=== PATIENT | male | born 1955 | race Caucasian/White ===

== ENCOUNTER 2021-03-19 09:50 | Inpatient (IN) | payer MEDICARE ==
[~2021-03-19] VITALS: Ht 177.8 cm; Wt 81.7 kg
[2021-03-19] MEDS ORDERED: DEXAMETHASONE SOD PHOS 20 MG/5 ML VIAL. IV ONE (10:30)
[2021-03-19] MEDS: NORMAL SALINE IV SCH ×9 (10:54→18:30)
[2021-03-19] MEDS ORDERED: DEXAMETHASONE SOD PHOS 4 MG/ML VIAL ONE (10:54)
[2021-03-19 11:06] LABS: BASO % 0 % (0-3); EOS % 0 % (0-3); HEMATOCRIT 43.8 % (39.0-53.0); HEMOGLOBIN 15.4 g/dL (13.0-17.5); LYMPH # 1.2 x10^3/uL (1.0-4.8); LYMPH % 28 % (24-48); MEAN CORPUSCULAR HEMOGLOBIN 32 pg (25-35); MEAN CORPUSCULAR HGB CONC 35 g/dL (31-37); MEAN CORPUSCULAR VOLUME 91 fL (79-100); MONO # 0.6 x10^3/uL (0.0-1.1); MONO % 14 % (0-9); NEUT # 2.5 x10^3/uL (1.8-7.7); NEUT % 58 % (31-73); PLATELET COUNT 187 x10^3/uL (140-400); RED BLOOD COUNT 4.82 x10^6/uL (4.30-5.70); RED CELL DISTRIBUTION WIDTH 13.5 % (11.5-14.5); WHITE BLOOD COUNT 4.4 x10^3/uL (4.0-11.0)
--- NOTE | 2021-03-19 11:07 | RAD ---
EXAM: Chest, single view. HISTORY: Fever. COMPARISON: None. FINDINGS: A frontal view of the chest obtained. There is left lower lobe atelectasis or interstitial infiltrate. No pleural effusion or pneumothorax is seen. The heart is normal in size. There are heale d rib fractures. There are surgical anchors within the right humeral head. IMPRESSION: Left lower lobe atelectasis or interstitial infiltrate. Electronically signed by: Effie Melendez MD (03/19/2021 11:05 AM) [id number]
[2021-03-19 11:15] LABS: CALCIUM 8.5 mg/dL (8.5-10.1); CREATININE 1.2 mg/dL (0.7-1.3); GFR 60.6
[2021-03-19 11:21] LABS: ALBUMIN/GLOBULIN RATIO 0.7 (1.0-1.7); TOTAL BILIRUBIN 0.8 mg/dL (0.2-1.0); TOTAL PROTEIN 7.1 g/dL (6.4-8.2)
[2021-03-19 11:44] LABS: INFLUENZA A PATIENT NEGATIVE (NEGATIVE); INFLUENZA B PATIENT NEGATIVE (NEGATIVE)
[2021-03-19 13:35] LABS: BILIRUBIN,URINE NEGATIVE (NEG); CLARITY,URINE CLEAR; COLOR,URINE YELLOW; NITRITE,URINE NEGATIVE (NEG); PROTEIN,URINE NEGATIVE (NEG-TRACE)
[2021-03-19 13:40] LABS: BACTERIA,URINE 0 /HPF (0-FEW); RBC,URINE 0 /HPF (0-2); WBC,URINE 0 /HPF (0-4)
[2021-03-19 13:42] LABS: BARBITURATES NEG (NEG); BENZODIAZEPINES NEG (NEG); CANNABINOIDS NEG (NEG); COCAINE NEG (NEG); METHADONE NEG (NEG); OPIATES POS (NEG); PHENCYCLIDINE NEG (NEG)
--- NOTE | 2021-03-19 13:42 | PDOC1 ---
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 Told EMS he has everything with myalgias, subjective fevers, cough, shortness of breath especially on exertion, chills, headache, loss of appetite, loss of taste, symptoms began 03/09/2021. Denies chest pain. Patient tells me he did not get the Covid vaccine and tells me he thinks that everyone who has had it has had their DNA altered. His cough is minimally productive but very annoying. Labs with rapid influenza and rapid COVID-19 antigen negative, WBC 12.4, Hb 15.4 platelets 187, NA 136, K4, BUN 12, CR 1.2, glucose 99, AST 58, ALT 5 alk phos 77, NT proBNP 146, albumin 3, troponin 0.053 lactate 1.7, urine drug screen positive for opiates, urinalysis bland otherwise. EKG sinus rhythm rate of 86 bpm normal axis and intervals QTc 439. Chest radiograph with left basilar infiltrate. Notably hypoxic 87% on room air improved with 2 L nasal cannula oxygen. Admitted for further care. Past Medical History Cardiovascular: CAD (2 RCA stent in 2013 - Dr. Nigel Jay), HTN, Hyperlipidemia Past Surgical History Past Surgical History: Hernia Repair (Bilateral inguinal and umbilical), Other (Right shoulder ORIF - 2012 in [place], [place]) Family History Family History: Coronary Artery Disease (Mother) Social History Smoke: Quit (1981) ALCOHOL: none Drugs: None Current Medications Current Medications Current Medications Sodium Chloride 2,190 ml @ 2,190 mls/hr Q1H IV Last administered on 03/19/21at 10:54; Start 03/19/21 at 10:30 Dexamethasone Sodium Phosphate (Decadron) 10 mg 1X ONCE IV Last administered on 03/19/21at 10:57; Start 03/19/21 at 10:30; Stop 03/19/21 at 12:08; Status DC Dexamethasone Sodium Phosphate (Decadron) 4 mg STK-MED ONCE .ROUTE ; Start 03/19/21 at 10:54; Stop 03/19/21 at 10:54; Status DC Piperacillin Sod/ Tazobactam Sod 3.375 gm/Sodium Chloride 50 ml @ 100 mls/hr 1X ONCE IV ; Start 03/19/21 at 14:00; Stop 03/19/21 at 14:29 Doxycycline Hyclate 100 mg/ Dextrose 100 ml @ 50 mls/hr 1X ONCE IV ; Start 03/19/21 at 13:45; Stop 03/19/21 at 15:44; Status UNV Ceftriaxone Sodium (Rocephin) 1 gm 1X ONCE IVP ; Start 03/19/21 at 13:45; Stop 03/19/21 at 13:46; Status UNV Doxycycline Hyclate 100 mg/ Dextrose 100 ml @ 50 mls/hr 1X ONCE IV ; Start 03/19/21 at 13:45; Stop 03/19/21 at 15:44; Status UNV Allergies Allergies: Coded Allergies: No Known Drug Allergies (Unverified , 03/19/21) ROS General: YES: Fatigue, Malaise; No: Chills, Night Sweats, Appetite, Other PSYCHOLOGICAL ROS: No: Anxiety, Behavioral Disorder, Concentration difficultie, Decreased libido, Depression, Disorientation, Hallucinations, Hostility, Irritablity, Memory difficulties, Mood Swings, Obsessive thoughts, Physical abuse, Sexual abuse, Sleep disturbances, Suicidal ideation, Other Eyes: No Blurry vision, No Decreased vision, No Double vision, No Dry eyes, No Excessive tearing, No Eye Pain, No Itchy Eyes, No Loss of vision, No Photophobia, No Scotomata, No Uses contacts, No Uses glasses, No Other HEENT: No: Heacaches, Visual Changes, Hearing change, Nasal congestion, Nasal discharge, Oral lesions, Sinus pain, Sore Throat, Epistaxis, Sneezing, Snoring, Tinnitus, Vertigo, Vocal changes, Other ALLERGY AND IMMUNOLOGY: No: Hives, Insect Bite Sensitivity, Itchy/Watery Eyes, Nasal Congestion, Post Nasal Drip, Seasonal Allergies, Other Hematological and Lymphatic: No: Bleeding Problems, Blood Clots, Blood Transfusions, Brusing, Night Sweats, Pallor, Swollen Lymph Nodes, Other ENDOCRINE: No: Breast Changes, Galactorrhea, Hair Pattern Changes, Hot Flashes, Malaise/lethargy, Mood Swings, Palpitations, Polydipsia/polyuria, Skin Changes, Temperature Intolerance, Unexpected Weight Changes, Other Breast: No New/Changing Breast Lumps, No Nipple changes, No Nipple discharge, N o Other Respiratory: YES: Cough, Shortness of breath, SOB with excertion; No: Hemoptysis, Orthopnea, Pleuritic Pain, Sputum Changes, Stridor, Tachypnea, Wheezing, Other Cardiovascular: No Chest Pain, No Palpitations, No Orthopnea, No Paroxysmal Noc. Dyspnea, No Edema, No Lt Headedness, No Other Gastrointestinal: No Nausea, No Vomiting, No Abdominal Pain, No Diarrhea, No Constipation, No Melena, No Hematochezia, No Other Genitourinary: No Dysuria, No Frequency, No Incontinence, No Hematuria, No Retention, No Discharge, No Urgency, No Pain, No Flank Pain, No Other, No , No , No , No , No , No , No Musculoskeletal: No Gait Disturbance, No Joint Pain, No Joint Stiffness, No Joint Swelling, No Muscle Pain, No Muscular Weakness, No Pain In:, No Swelling In:, No Other Neurological: No Behavorial Changes, No Bowel/Bladder ControlChng, No Confusion, No Dizziness, No Gait Disturbance, No Headaches, No Impaired Coord/balance, No Memory Loss, No Numbness/Tingling, No Seizures, No Speech Problems, No Tremors, No Visual Changes, No Weakness, No Other Skin: No Dry Skin, No Eczema, No Hair Changes, No Lumps, No Mole Changes, No Mottling, No Nail Changes, No Pruritus, No Rash, No Skin Lesion Changes, No Other, No Acne Physical Exam General: Alert, Oriented X3, Cooperative, moderate distress HEENT: Atraumatic, PERRLA, EOMI, Mucous membr. moist/pink Lungs: Other (Left basilar rhonchi) Heart: S1S2, RRR, no thrills, no rubs, no gallops, no murmurs Abdomen: Normal bowel sounds, Soft, No tenderness, No hepatosplenomegaly, No masses Rectal Exam: not examined Extremities: No clubbing, No cyanosis, No edema, Normal pulses, No tenderness/swelling Skin: No rashes, No breakdown, No significant lesion Neuro: Normal gait, Normal speech, Strength at 5/5 X4 ext, Normal tone, Sensation intact, Cranial nerves 3-12 NL, Reflexes 2+ Psych/Mental Status: Mental status NL, Mood NL Vitals Vitals Vital Signs Date Time Temp Pulse Resp B/P (MAP) Pulse Ox O2 Delivery O2 Flow Rate FiO2 03/19/21 13:21 76 19 138/70 (92) 95 Nasal Cannula 2.0 03/19/21 09:55 98.6 98.6 Labs Labs Laboratory Tests Test 03/19/21 10:37 03/19/21 10:40 03/19/21 13:17 White Blood Count 4.4 x10^3/uL (4.0-11.0) Red Blood Count 4.82 x10^6/uL (4.30-5.70) Hemoglobin 15.4 g/dL (13.0-17.5) Hematocrit 43.8 % (39.0-53.0) Mean Corpuscular Volume 91 fL (79-100) Mean Corpuscular Hemoglobin 32 pg (25-35) Mean Corpuscular Hemoglobin Concent 35 g/dL (31-37) Red Cell Distribution Width 13.5 % (11.5-14.5) Platelet Count 187 x10^3/uL (140-400) Neutrophils (%) (Auto) 58 % (31-73) Lymphocytes (%) (Auto) 28 % (24-48) Monocytes (%) (Auto) 14 % (0-9) Eosinophils (%) (Auto) 0 % (0-3) Basophils (%) (Auto) 0 % (0-3) Neutrophils # (Auto) 2.5 x10^3/uL (1.8-7.7) Lymphocytes # (Auto) 1.2 x10^3/uL (1.0-4.8) Monocytes # (Auto) 0.6 x10^3/uL (0.0-1.1) Eosinophils # (Auto) 0.0 x10^3/uL (0.0-0.7) Basophils # (Auto) 0.0 x10^3/uL (0.0-0.2) Sodium Level 136 mmol/L (136-145) Potassium Level 4.0 mmol/L (3.5-5.1) Chloride Level 99 mmol/L (98-107) Carbon Dioxide Level 30 mmol/L (21-32) Anion Gap 7 (6-14) Blood Urea Nitrogen 12 mg/dL (8-26) Creatinine 1.2 mg/dL (0.7-1.3) Estimated GFR (Cockcroft-Gault) 60.6 BUN/Creatinine Ratio 10 (6-20) Glucose Level 99 mg/dL (70-99) Lactic Acid Level 1.4 mmol/L (0.4-2.0) Calcium Level 8.5 mg/dL (8.5-10.1) Magnesium Level 2.0 mg/dL (1.8-2.4) Total Bilirubin 0.8 mg/dL (0.2-1.0) Aspartate Amino Transf (AST/SGOT) 58 U/L (15-37) Alanine Aminotransferase (ALT/SGPT) 55 U/L (16-63) Alkaline Phosphatase 77 U/L (46-116) Troponin I Quantitative 0.053 ng/mL (0.000-0.055) YP-Fby-I-Type Natriuretic Peptide 146 pg/mL (0-124) Total Protein 7.1 g/dL (6.4-8.2) Albumin 3.0 g/dL (3.4-5.0) Albumin/Globulin Ratio 0.7 (1.0-1.7) Procalcitonin < 0.10 ng/mL (0.00-0.10) Thyroid Stimulating Hormone (TSH) 1.930 uIU/mL (0.358-3.74) Influenza Type A Antigen Negative (NEGATIVE) Influenza Type B Antigen Negative (NEGATIVE) SARS-CoV-2 Antigen (Rapid) Negative (NEGATIVE) Urine Collection Type Unknown Urine Color Yellow Urine Clarity Clear Urine pH 6.0 (<5.0-8.0) Urine Specific [place] 1.015 (1.000-1.030) Urine Protein Negative mg/dL (NEG-TRACE) Urine Glucose (UA) Negative mg/dL (NEG) Urine Ketones (Stick) 40 mg/dL (NEG) Urine Blood Negative (NEG) Urine Nitrite Negative (NEG) Urine Bilirubin Negative (NEG) Urine Urobilinogen Dipstick 1.0 mg/dL (0.2 mg/dL) Urine Leukocyte Esterase Negative (NEG) Urine RBC 0 /HPF (0-2) Urine WBC 0 /HPF (0-4) Urine Squamous Epithelial Cells Few /LPF Urine Bacteria 0 /HPF (0-FEW) Urine Mucus Slight /LPF Laboratory Tests Test 03/19/21 10:37 03/19/21 10:40 03/19/21 13:17 White Blood Count 4.4 x10^3/uL (4.0-11.0) Red Blood Count 4.82 x10^6/uL (4.30-5.70) Hemoglobin 15.4 g/dL (13.0-17.5) Hematocrit 43.8 % (39.0-53.0) Mean Corpuscular Volume 91 fL (79-100) Mean Corpuscular Hemoglobin 32 pg (25-35) Mean Corpuscular Hemoglobin Concent 35 g/dL (31-37) Red Cell Distribution Width 13.5 % (11.5-14.5) Platelet Count 187 x10^3/uL (140-400) Neutrophils (%) (Auto) 58 % (31-73) Lymphocytes (%) (Auto) 28 % (24-48) Monocytes (%) (Auto) 14 % (0-9) Eosinophils (%) (Auto) 0 % (0-3) Basophils (%) (Auto) 0 % (0-3) Neutrophils # (Auto) 2.5 x10^3/uL (1.8-7.7) Lymphocytes # (Auto) 1.2 x10^3/uL (1.0-4.8) Monocytes # (Auto) 0.6 x10^3/uL (0.0-1.1) Eosinophils # (Auto) 0.0 x10^3/uL (0.0-0.7) Basophils # (Auto) 0.0 x10^3/uL (0.0-0.2) Sodium Level 136 mmol/L (136-145) Potassium Level 4.0 mmol/L (3.5-5.1) Chloride Level 99 mmol/L (98-107) Carbon Dioxide Level 30 mmol/L (21-32) Anion Gap 7 (6-14) Blood Urea Nitrogen 12 mg/dL (8-26) Creatinine 1.2 mg/dL (0.7-1.3) Estimated GFR (Cockcroft-Gault) 60.6 BUN/Creatinine Ratio 10 (6-20) Glucose Level 99 mg/dL (70-99) Lactic Acid Level 1.4 mmol/L (0.4-2.0) Calcium Level 8.5 mg/dL (8.5-10.1) Magnesium Level 2.0 mg/dL (1.8-2.4) Total Bilirubin 0.8 mg/dL (0.2-1.0) Aspartate Amino Transf (AST/SGOT) 58 U/L (15-37) Alanine Aminotransferase (ALT/SGPT) 55 U/L (16-63) Alkaline Phosphatase 77 U/L (46-116) Troponin I Quantitative 0.053 ng/mL (0.000-0.055) RY-Phb-E-Type Natriuretic Peptide 146 pg/mL (0-124) Total Protein 7.1 g/dL (6.4-8.2) Albumin 3.0 g/dL (3.4-5.0) Albumin/Globulin Ratio 0.7 (1.0-1.7) Procalcitonin < 0.10 ng/mL (0.00-0.10) Thyroid Stimulating Hormone (TSH) 1.930 uIU/mL (0.358-3.74) Influenza Type A Antigen Negative (NEGATIVE) Influenza Type B Antigen Negative (NEGATIVE) SARS-CoV-2 Antigen (Rapid) Negative (NEGATIVE) Urine Collection Type Unknown Urine Color Yellow Urine Clarity Clear Urine pH 6.0 (<5.0-8.0) Urine Specific [place] 1.015 (1.000-1.030) Urine Protein Negative mg/dL (NEG-TRACE) Urine Glucose (UA) Negative mg/dL (NEG) Urine Ketones (Stick) 40 mg/dL (NEG) Urine Blood Negative (NEG) Urine Nitrite Negative (NEG) Urine Bilirubin Negative (NEG) Urine Urobilinogen Dipstick 1.0 mg/dL (0.2 mg/dL) Urine Leukocyte Esterase Negative (NEG) Urine RBC 0 /HPF (0-2) Urine WBC 0 /HPF (0-4) Urine Squamous Epithelial Cells Few /LPF Urine Bacteria 0 /HPF (0-FEW) Urine Mucus Slight /LPF Images Images Chest radiograph: A frontal view of the chest obtained. There is left lower lobe atelectasis or interstitial infiltrate. No pleural effusion or pneumothorax is seen. The heart is normal in size. There are healed rib fractures. There are surgical anchors within the right humeral head. IMPRESSION: Left lower lobe atelectasis or interstitial infiltrate. VTE Prophylaxis Ordered VTE Prophylaxis Devices: No VTE Pharmacological Prophylaxi: Yes Assessment/Plan Assessment/Plan A/P: Acute hypoxic respiratory failure - likely due to community acquired pneumonia, though COVID 19 is a strong possibility as well. Will wean O2 as tolerated Left lower lobe pneumonia - Rocephin and azithromycin. Given hypoxia will need admission to the hospital. F/u COVID 19 results CAD - s/p RCA stenting, cont meds. Follows with Dr. Jay HLD - cont statin, does not want to have lipitor HTN - cont BB Elevated troponin - likely demand ischemia, will trend. No EKG or telemetry changes. If elevated > 0.5 will initiate heparin and consult cardiology FEN - Cardiac diet PPX - lovenox FULL CODE Dispo - inpatient COVID-19 CRITERIA: The patient was evaluated during the global COVID-19 pandemic, and that diagnosis was suspected/considered upon their initial presentation. Their evaluation, treatment and testing was consistent with current guidelines for patients who present with complaints or symptoms that may be related to COVID-19. Justifications for Admission Other Justification ERICK CARRILLO MD Mar 19, 2021 13:42
[2021-03-19 13:43] LABS: AMPHETAMINE/METHAMPHETAMINE NEG (NEG)
[2021-03-19] MEDS ORDERED: MORPHINE SULFATE 2 MG/ML INJ. IVP PRN (13:45)
[2021-03-19] MEDS ORDERED: DOXYCYCLINE HYCLATE 100 MG in IV DEXTROSE 5% 100ML 100 ML IV ONE ×2 (13:45→14:00)
[2021-03-19] MEDS ORDERED: ACETAMINOPHEN 325 MG TABLET. PO PRN ×2 (13:45→14:00)
[2021-03-19] MEDS ORDERED: ONDANSETRON PF 4 MG/2 ML VIAL. IVP PRN ×2 (13:45→14:00)
[2021-03-19] MEDS ORDERED: PIPERACILLIN/TAZOBACTAM 3.375 GM in IV NORMAL SALINE 50ML 50 ML IV ONE (14:00)
[2021-03-19] MEDS ORDERED: cefTRIAXone IV Push 1 GM VIAL. IVP ONE (14:00)
--- NOTE | 2021-03-19 14:48 | PHYS DOC ---
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 Patient states he has subjective fevers, cough, shortness of breath especially on exertion, body aches, chills, headache, loss of appetite, loss of taste, symptoms began March 13, 2021. Denies chest pain. Patient states he did not get "the stupid" Covid vaccine neither does he want to hear about the vaccine. Review of Systems: Review of Systems: Constitutional: Reports fever Eyes: Denies change in visual acuity. [] HENT: Reports loss of taste, loss of appetite, denies nasal congestion or sore throat. [] Respiratory: Reports cough shortness of breath. [] Cardiovascular: Denies chest pain or edema. [] GI: Denies abdominal pain, nausea, vomiting, bloody stools or diarrhea. [] : Denies dysuria. [] Musculoskeletal: Denies back pain or joint pain. [] Integument: Denies rash. [] Neurologic: Reports headache, denies focal weakness or sensory changes. [] Endocrine: Denies polyuria or polydipsia. [] Psychiatric: Denies depression or anxiety. [] Heart Score: C/O Chest Pain: N/A Risk Factors: Risk Factors: DM, Current or recent (<one month) smoker, HTN, HLP, family history of CAD, obesity. Risk Scores: Score 0 - 3: 2.5% MACE over next 6 weeks - Discharge Home Score 4 - 6: 20.3% MACE over next 6 weeks - Admit for Clinical Observation Score 7 - 10: 72.7% MACE over next 6 weeks - Early Invasive Strategies Current Medications: Current Medications Medications (Trade) Dose Ordered Sig/Jeanie Start Time Stop Time Status Last Admin Dose Admin Acetaminophen (Tylenol) 650 mg PRN Q4HRS PRN 03/19/21 13:45 03/20/21 13:44 UNV Ceftriaxone Sodium (Rocephin) 1 gm 1X ONCE 03/19/21 14:00 03/19/21 14:01 DC 03/19/21 13:55 1 GM Dexamethasone Sodium Phosphate (Decadron) 4 mg STK-MED ONCE 03/19/21 10:54 03/19/21 10:54 DC Doxycycline Hyclate 100 mg/ Dextrose 100 ml @ 50 mls/hr 1X ONCE 03/19/21 13:45 03/19/21 15:44 UNV Morphine Sulfate (Morphine Sulfate) 2 mg PRN Q2HR PRN 03/19/21 13:45 03/20/21 13:44 Ondansetron HCl (Zofran) 4 mg PRN Q8HRS PRN 03/19/21 13:45 03/20/21 13:44 UNV Piperacillin Sod/ Tazobactam Sod 3.375 gm/Sodium Chloride 50 ml @ 100 mls/hr 1X ONCE 03/19/21 14:00 03/19/21 14:29 DC 03/19/21 13:58 100 MLS/HR Sodium Chloride 2,190 ml @ 2,190 mls/hr Q1H 03/19/21 10:30 03/19/21 10:54 2,190 MLS/HR Allergies: Allergies: Allergies Coded Allergies Type Severity Reaction Last Updated Verified No Known Drug Allergies 03/19/21 No Physical Exam: PE: Constitutional: Well developed, well nourished, no acute distress, non-toxic appearance. [] HENT: Normocephalic, atraumatic, bilateral external ears normal, oropharynx moist, no oral exudates, nose normal. [] Eyes: PERRLA, EOMI, conjunctiva normal, no discharge. [] Neck: Normal range of motion, no tenderness, supple, no stridor. [] Cardiovascular:Heart rate regular rhythm, no murmur [] Lungs & Thorax: Bilateral breath sounds clear to auscultation [] Abdomen: Bowel sounds normal, soft, no tenderness, no masses, no pulsatile masses. [] Skin: Warm, dry, no erythema, no rash. [] Back: No tenderness, no CVA tenderness. [] Extremities: No tenderness, no cyanosis, no clubbing, ROM intact, no edema. [] Neurologic: Alert and oriented X 3, normal motor function, normal sensory function, no focal deficits noted. [] Psychologic: Affect normal, judgement normal, mood normal. [] Current Patient Data: Labs: Laboratory Tests Test 03/19/21 10:37 03/19/21 10:40 03/19/21 13:17 White Blood Count 4.4 x10^3/uL (4.0-11.0) Red Blood Count 4.82 x10^6/uL (4.30-5.70) Hemoglobin 15.4 g/dL (13.0-17.5) Hematocrit 43.8 % (39.0-53.0) Mean Corpuscular Volume 91 fL (79-100) Mean Corpuscular Hemoglobin 32 pg (25-35) Mean Corpuscular Hemoglobin Concent 35 g/dL (31-37) Red Cell Distribution Width 13.5 % (11.5-14.5) Platelet Count 187 x10^3/uL (140-400) Neutrophils (%) (Auto) 58 % (31-73) Lymphocytes (%) (Auto) 28 % (24-48) Monocytes (%) (Auto) 14 % (0-9) H Eosinophils (%) (Auto) 0 % (0-3) Basophils (%) (Auto) 0 % (0-3) Neutrophils # (Auto) 2.5 x10^3/uL (1.8-7.7) Lymphocytes # (Auto) 1.2 x10^3/uL (1.0-4.8) Monocytes # (Auto) 0.6 x10^3/uL (0.0-1.1) Eosinophils # (Auto) 0.0 x10^3/uL (0.0-0.7) Basophils # (Auto) 0.0 x10^3/uL (0.0-0.2) Sodium Level 136 mmol/L (136-145) Potassium Level 4.0 mmol/L (3.5-5.1) Chloride Level 99 mmol/L (98-107) Carbon Dioxide Level 30 mmol/L (21-32) Anion Gap 7 (6-14) Blood Urea Nitrogen 12 mg/dL (8-26) Creatinine 1.2 mg/dL (0.7-1.3) Estimated GFR (Cockcroft-Gault) 60.6 BUN/Creatinine Ratio 10 (6-20) Glucose Level 99 mg/dL (70-99) Lactic Acid Level 1.4 mmol/L (0.4-2.0) Calcium Level 8.5 mg/dL (8.5-10.1) Magnesium Level 2.0 mg/dL (1.8-2.4) Total Bilirubin 0.8 mg/dL (0.2-1.0) Aspartate Amino Transferase (AST) 58 U/L (15-37) H Alanine Aminotransferase (ALT) 55 U/L (16-63) Alkaline Phosphatase 77 U/L (46-116) Troponin I Quantitative 0.053 ng/mL (0.000-0.055) PI-Ezn-L-Type Natriuretic Peptide 146 pg/mL (0-124) H Total Protein 7.1 g/dL (6.4-8.2) Albumin 3.0 g/dL (3.4-5.0) L Albumin/Globulin Ratio 0.7 (1.0-1.7) L Procalcitonin < 0.10 ng/mL (0.00-0.10) Thyroid Stimulating Hormone (TSH) 1.930 uIU/mL (0.358-3.74) Influenza Type A Antigen Negative (NEGATIVE) Influenza Type B Antigen Negative (NEGATIVE) SARS-CoV-2 Antigen (Rapid) Negative (NEGATIVE) Urine Collection Type Unknown Urine Color Yellow Urine Clarity Clear Urine pH 6.0 (<5.0-8.0) Urine Specific [place] 1.015 (1.000-1.030) Urine Protein Negative mg/dL (NEG-TRACE) Urine Glucose (UA) Negative mg/dL (NEG) Urine Ketones (Stick) 40 mg/dL (NEG) Urine Blood Negative (NEG) Urine Nitrite Negative (NEG) Urine Bilirubin Negative (NEG) Urine Urobilinogen Dipstick 1.0 mg/dL (0.2 mg/dL) Urine Leukocyte Esterase Negative (NEG) Urine RBC 0 /HPF (0-2) Urine WBC 0 /HPF (0-4) Urine Squamous Epithelial Cells Few /LPF Urine Bacteria 0 /HPF (0-FEW) Urine Mucus Slight /LPF Urine Opiates Screen Pos (NEG) Urine Methadone Screen Neg (NEG) Urine Barbiturates Neg (NEG) Urine Phencyclidine Screen Neg (NEG) Urine Amphetamine/Methamphetamine Neg (NEG) Urine Benzodiazepines Screen Neg (NEG) Urine Cocaine Screen Neg (NEG) Urine Cannabinoids Screen Neg (NEG) Urine Ethyl Alcohol Neg (NEG) Laboratory Tests 03/19/21 10:37 Laboratory Tests 03/19/21 10:37 Vital Signs: Vital Signs Date Time Temp Pulse Resp B/P (MAP) Pulse Ox O2 Delivery O2 Flow Rate FiO2 03/19/21 13:21 76 19 138/70 (92) 95 Nasal Cannula 2.0 03/19/21 09:55 98.6 98.6 EKG: EK interpreted by Dr. Anguiano sinus rhythm HR 86 no STEMI[] Radiology/Procedures: Radiology/Procedures: []PROCEDURE: PORTABLE CHEST 1V EXAM: Chest, single view. HISTORY: Fever. COMPARISON: None. FINDINGS: A frontal view of the chest obtained. There is left lower lobe atelectasis or interstitial infiltrate. No pleural effusion or pneumothorax is seen. The heart is normal in size. There are healed rib fractures. There are surgical anchors within the right humeral head. IMPRESSION: Left lower lobe atelectasis or interstitial infiltrate. Electronically signed by: Effie Morales MD (03/19/2021 11:05 AM) [id number] DICTATED and SIGNED BY: EFFIE MORALES MD DATE: 03/19/21 [id number] 0 Course & Med Decision Making: Course & Med Decision Making Pertinent Labs and Imaging studies reviewed. (See chart for details) Is a 65-year-old male patient tract of the presenting to the ED today complaining of fever, headaches, cough, shortness of breath, loss of taste and appetite, chills, symptoms of been going on for 10 days. Patient was hypoxic upon arrival to the ER. O2 sats were around 87 on room air, he was put on 2 L of oxygen currently satting 94%. Blood pressure 136/85, heart rate 97, temperature 98.6. CBC with no acute findings, CMP with AST of 58 Chest x-ray noted for possible infiltrate or atelectasis on the left lower lobe. Spoke to Dr. Dillard who accepted patient for admission, patient was started on dexamethasone in the ED, was also given Rocephin and doxycycline. Bella Disclaimer: Bella Disclaimer: This electronic medical record was generated, in whole or in part, using a voice recognition dictation system. Departure Departure Impression: Primary Impression: Community acquired pneumonia Qualified Codes: J18.9 - Pneumonia, unspecified organism Additional Impressions: Hypoxia Shortness of breath Person under investigation for COVID-19 Headache Qualified Codes: R51.9 - Headache, unspecified Fever Qualified Codes: R50.9 - Fever, unspecified Disposition: 09 ADMITTED INPATIENT Condition: STABLE Referrals: NO PCP (PCP) ANTOINE NGUYỄN [employer] SANDING MACHINE OPERATOR Mar 19, 2021 14:48
[2021-03-19] MEDS: THIAMINE 100 MG TABLET. PO SCH (17:37)
[2021-03-19] MEDS: ASCORBIC ACID 500 MG TABLET PO SCH (17:37)
[2021-03-19] MEDS: ZINC SULFATE 220 MG CAPSULE. PO SCH (17:37)
[2021-03-19] MEDS: ENOXAPARIN 40 MG/0.4 ML SYRINGE. SQ SCH (17:38)
[2021-03-19 19:00] VITALS: BP 105/67
[2021-03-19] MEDS: DOXYCYCLINE HYCLATE 100 MG TABLET PO SCH (21:51)
[2021-03-19 23:00] VITALS: BP 115/61
[2021-03-20 02:58] VITALS: BP 128/75
[2021-03-20 07:00] VITALS: BP 108/54
[2021-03-20 08:16] LABS: ALBUMIN 2.7 g/dL (3.4-5.0); ALBUMIN/GLOBULIN RATIO 0.9 (1.0-1.7); CALCIUM 8.1 mg/dL (8.5-10.1); CREATININE 0.9 mg/dL (0.7-1.3); GFR 84.4; POTASSIUM 4.2 mmol/L (3.5-5.1); TOTAL BILIRUBIN 0.5 mg/dL (0.2-1.0); TOTAL PROTEIN 5.8 g/dL (6.4-8.2)
[2021-03-20 08:21] LABS: BASO % 0 % (0-3); EOS % 0 % (0-3); HEMATOCRIT 40.3 % (39.0-53.0); HEMOGLOBIN 13.9 g/dL (13.0-17.5); LYMPH # 0.9 x10^3/uL (1.0-4.8); LYMPH % 20 % (24-48); MEAN CORPUSCULAR HEMOGLOBIN 32 pg (25-35); MEAN CORPUSCULAR HGB CONC 35 g/dL (31-37); MEAN CORPUSCULAR VOLUME 91 fL (79-100); MONO # 0.6 x10^3/uL (0.0-1.1); MONO % 12 % (0-9); NEUT # 3.2 x10^3/uL (1.8-7.7); NEUT % 68 % (31-73); PLATELET COUNT 219 x10^3/uL (140-400); RED BLOOD COUNT 4.42 x10^6/uL (4.30-5.70); RED CELL DISTRIBUTION WIDTH 13.4 % (11.5-14.5); WHITE BLOOD COUNT 4.7 x10^3/uL (4.0-11.0)
--- NOTE | 2021-03-20 08:33 | PDOC ---
[employer] PROGRESS NOTE Date of Service DOS: DATE: 03/20/21 TIME: 08:33 Chief Complaint Chief Complaint A/P: Acute hypoxic respiratory failure - likely due to community acquired pneumonia, though COVID 19 is a strong possibility as well. Will wean O2 as tolerated Left lower lobe pneumonia - Rocephin and azithromycin. Given hypoxia will need admission to the hospital. F/u COVID 19 results CAD - s/p RCA stenting, cont meds. Follows with Dr. Jay HLD - cont statin, does not want to have lipitor HTN - cont BB Elevated troponin - likely demand ischemia, will trend. No EKG or telemetry changes. If elevated > 0.5 will initiate heparin and consult cardiology FEN - Cardiac diet PPX - lovenox FULL CODE Dispo - inpatient COVID-19 CRITERIA: The patient was evaluated during the global COVID-19 pandemic, and that diagnosis was suspected/considered upon their initial presentation. Their evaluation, treatment and testing was consistent with current guidelines for patients who present with complaints or symptoms that may be related to COVID-19. 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 Told EMS he has everything with myalgias, subjective fevers, cough, shortness of breath especially on exertion, chills, headache, loss of appetite, loss of taste, symptoms began 03/09/2021. Denies chest pain. Patient tells me he did not get the Covid vaccine and tells me he thinks that everyone who has had it has had their DNA altered. His cough is minimally productive but very annoying. Labs with rapid influenza and rapid COVID-19 antigen negative, WBC 12.4, Hb 15.4 platelets 187, NA 136, K4, BUN 12, CR 1.2, glucose 99, AST 58, ALT 5 alk phos 77, NT proBNP 146, albumin 3, troponin 0.053 lactate 1.7, urine drug screen positive for opiates, urinalysis bland otherwise. EKG sinus rhythm rate of 86 bpm normal axis and intervals QTc 439. Chest radiograph with left basilar infiltrate. Notably hypoxic 87% on room air improved with 2 L nasal cannula oxygen. Admitted for further care. Worse pill dysphagia this morning. Still hypoxic requiring 2 L nasal cannula to maintain saturations 91%. Still with a pretty significant cough. COVID-19 returned negative. Afebrile. Some chest pain on cough. Troponin minimally elevated 0.061. Will get repeat troponin Vitals/I&O Vitals/I&O: Vital Signs Date Time Temp Pulse Resp B/P (MAP) Pulse Ox O2 Delivery O2 Flow Rate FiO2 03/20/21 07:00 98.7 58 17 108/54 (72) 97 Nasal Cannula 2.0 98.7 I & O 03/19/21 03/19/21 03/20/21 15:00 23:00 07:00 Intake Total 2290 ml 200 ml Output Total 200 ml 700 ml Balance 2290 ml 0 ml -700 ml Physical Exam General: Alert, Oriented X3, Cooperative, moderate distress Abdomen: Normal bowel sounds, Soft, No tenderness, No hepatosplenomegaly, No masses Extremities: No clubbing, No cyanosis, No edema, Normal pulses, No tenderness/swelling Skin: No rashes, No breakdown, No significant lesion Labs Labs: Laboratory Tests Test 03/19/21 10:37 03/19/21 10:40 03/19/21 13:17 03/19/21 14:18 White Blood Count 4.4 x10^3/uL (4.0-11.0) Red Blood Count 4.82 x10^6/uL (4.30-5.70) Hemoglobin 15.4 g/dL (13.0-17.5) Hematocrit 43.8 % (39.0-53.0) Mean Corpuscular Volume 91 fL (79-100) Mean Corpuscular Hemoglobin 32 pg (25-35) Mean Corpuscular Hemoglobin Concent 35 g/dL (31-37) Red Cell Distribution Width 13.5 % (11.5-14.5) Platelet Count 187 x10^3/uL (140-400) Neutrophils (%) (Auto) 58 % (31-73) Lymphocytes (%) (Auto) 28 % (24-48) Monocytes (%) (Auto) 14 % (0-9) Eosinophils (%) (Auto) 0 % (0-3) Basophils (%) (Auto) 0 % (0-3) Neutrophils # (Auto) 2.5 x10^3/uL (1.8-7.7) Lymphocytes # (Auto) 1.2 x10^3/uL (1.0-4.8) Monocytes # (Auto) 0.6 x10^3/uL (0.0-1.1) Eosinophils # (Auto) 0.0 x10^3/uL (0.0-0.7) Basophils # (Auto) 0.0 x10^3/uL (0.0-0.2) Sodium Level 136 mmol/L (136-145) Potassium Level 4.0 mmol/L (3.5-5.1) Chloride Level 99 mmol/L (98-107) Carbon Dioxide Level 30 mmol/L (21-32) Anion Gap 7 (6-14) Blood Urea Nitrogen 12 mg/dL (8-26) Creatinine 1.2 mg/dL (0.7-1.3) Estimated GFR (Cockcroft-Gault) 60.6 BUN/Creatinine Ratio 10 (6-20) Glucose Level 99 mg/dL (70-99) Lactic Acid Level 1.4 mmol/L (0.4-2.0) Calcium Level 8.5 mg/dL (8.5-10.1) Magnesium Level 2.0 mg/dL (1.8-2.4) Total Bilirubin 0.8 mg/dL (0.2-1.0) Aspartate Amino Transf (AST/SGOT) 58 U/L (15-37) Alanine Aminotransferase (ALT/SGPT) 55 U/L (16-63) Alkaline Phosphatase 77 U/L (46-116) Troponin I Quantitative 0.053 ng/mL (0.000-0.055) 0.058 ng/mL (0.000-0.055) LF-Ujp-T-Type Natriuretic Peptide 146 pg/mL (0-124) Total Protein 7.1 g/dL (6.4-8.2) Albumin 3.0 g/dL (3.4-5.0) Albumin/Globulin Ratio 0.7 (1.0-1.7) Procalcitonin < 0.10 ng/mL (0.00-0.10) Thyroid Stimulating Hormone (TSH) 1.930 uIU/mL (0.358-3.74) Influenza Type A Antigen Negative (NEGATIVE) Influenza Type B Antigen Negative (NEGATIVE) SARS-CoV-2 RNA (CHERI) Negative (Negative) SARS-CoV-2 Antigen (Rapid) Negative (NEGATIVE) Urine Collection Type Unknown Urine Color Yellow Urine Clarity Clear Urine pH 6.0 (<5.0-8.0) Urine Specific [place] 1.015 (1.000-1.030) Urine Protein Negative mg/dL (NEG-TRACE) Urine Glucose (UA) Negative mg/dL (NEG) Urine Ketones (Stick) 40 mg/dL (NEG) Urine Blood Negative (NEG) Urine Nitrite Negative (NEG) Urine Bilirubin Negative (NEG) Urine Urobilinogen Dipstick 1.0 mg/dL (0.2 mg/dL) Urine Leukocyte Esterase Negative (NEG) Urine RBC 0 /HPF (0-2) Urine WBC 0 /HPF (0-4) Urine Squamous Epithelial Cells Few /LPF Urine Bacteria 0 /HPF (0-FEW) Urine Mucus Slight /LPF Urine Opiates Screen Pos (NEG) Urine Methadone Screen Neg (NEG) Urine Barbiturates Neg (NEG) Urine Phencyclidine Screen Neg (NEG) Urine Amphetamine/Methamphetamine Neg (NEG) Urine Benzodiazepines Screen Neg (NEG) Urine Cocaine Screen Neg (NEG) Urine Cannabinoids Screen Neg (NEG) Urine Ethyl Alcohol Neg (NEG) Test 03/19/21 16:51 03/19/21 20:29 03/20/21 06:40 Glucose (Fingerstick) 145 mg/dL (70-99) 154 mg/dL (70-99) White Blood Count 4.7 x10^3/uL (4.0-11.0) Red Blood Count 4.42 x10^6/uL (4.30-5.70) Hemoglobin 13.9 g/dL (13.0-17.5) Hematocrit 40.3 % (39.0-53.0) Mean Corpuscular Volume 91 fL (79-100) Mean Corpuscular Hemoglobin 32 pg (25-35) Mean Corpuscular Hemoglobin Concent 35 g/dL (31-37) Red Cell Distribution Width 13.4 % (11.5-14.5) Platelet Count 219 x10^3/uL (140-400) Neutrophils (%) (Auto) 68 % (31-73) Lymphocytes (%) (Auto) 20 % (24-48) Monocytes (%) (Auto) 12 % (0-9) Eosinophils (%) (Auto) 0 % (0-3) Basophils (%) (Auto) 0 % (0-3) Neutrophils # (Auto) 3.2 x10^3/uL (1.8-7.7) Lymphocytes # (Auto) 0.9 x10^3/uL (1.0-4.8) Monocytes # (Auto) 0.6 x10^3/uL (0.0-1.1) Eosinophils # (Auto) 0.0 x10^3/uL (0.0-0.7) Basophils # (Auto) 0.0 x10^3/uL (0.0-0.2) Sodium Level 138 mmol/L (136-145) Potassium Level 4.2 mmol/L (3.5-5.1) Chloride Level 104 mmol/L (98-107) Carbon Dioxide Level 27 mmol/L (21-32) Anion Gap 7 (6-14) Blood Urea Nitrogen 9 mg/dL (8-26) Creatinine 0.9 mg/dL (0.7-1.3) Estimated GFR (Cockcroft-Gault) 84.4 BUN/Creatinine Ratio 10 (6-20) Glucose Level 125 mg/dL (70-99) Calcium Level 8.1 mg/dL (8.5-10.1) Total Bilirubin 0.5 mg/dL (0.2-1.0) Aspartate Amino Transf (AST/SGOT) 48 U/L (15-37) Alanine Aminotransferase (ALT/SGPT) 52 U/L (16-63) Alkaline Phosphatase 69 U/L (46-116) Troponin I Quantitative 0.061 ng/mL (0.000-0.055) Total Protein 5.8 g/dL (6.4-8.2) Albumin 2.7 g/dL (3.4-5.0) Albumin/Globulin Ratio 0.9 (1.0-1.7) Assessment and Plan Assessmemt and Plan Problems Medical Problems: (1) Community acquired pneumonia Status: Acute (2) Fever Status: Acute (3) Headache Status: Acute (4) Hypoxia Status: Acute (5) Person under investigation for COVID-19 Status: Acute (6) Shortness of breath Status: Acute Comment Review of Relevant I have reviewed the following items jed (where applicable) has been applied. Medications: Current Medications Medications (Trade) Dose Ordered Sig/Jeanie Route PRN Reason Start Time Stop Time Status Last Admin Dose Admin Sodium Chloride 2,190 ml @ 2,190 mls/hr Q1H IV 03/19/21 10:30 03/19/21 20:17 DC 03/19/21 10:54 Dexamethasone Sodium Phosphate (Decadron) 10 mg 1X ONCE IV 03/19/21 10:30 03/19/21 12:08 DC 03/19/21 10:57 Piperacillin Sod/ Tazobactam Sod 3.375 gm/Sodium Chloride 50 ml @ 100 mls/hr 1X ONCE IV 03/19/21 14:00 03/19/21 14:29 DC 03/19/21 13:58 Doxycycline Hyclate 100 mg/ Dextrose 100 ml @ 50 mls/hr 1X ONCE IV 03/19/21 14:00 03/19/21 15:59 DC 03/19/21 14:00 Ceftriaxone Sodium (Rocephin) 1 gm 1X ONCE IVP 03/19/21 14:00 03/19/21 14:01 DC 03/19/21 13:55 Acetaminophen (Tylenol) 650 mg PRN Q6HRS PRN PO MILD PAIN / TEMP > 100.3'F 03/19/21 14:00 03/19/21 22:37 Morphine Sulfate (Morphine Sulfate) 2 mg PRN Q2HR PRN IVP PAIN 03/19/21 13:45 03/20/21 13:44 03/19/21 21:51 Enoxaparin Sodium (Lovenox 40mg Syringe) 40 mg Q24H SQ 03/19/21 16:00 03/19/21 17:38 Zinc Sulfate (Orazinc) 220 mg DAILY PO 03/19/21 15:00 03/19/21 17:37 Thiamine Mononitrate (Vitamin B-1) 100 mg DAILY PO 03/19/21 15:00 03/19/21 17:37 Ascorbic Acid (Vitamin C) 500 mg DAILY PO 03/19/21 15:00 03/19/21 17:37 Doxycycline Hyclate (Vibra-Tab) 100 mg BID PO 03/19/21 21:00 03/19/21 21:51 Lorazepam (Ativan) 1 mg PRN QHS PRN PO ANXIETY / AGITATION 03/19/21 22:15 03/19/21 22:37 Justifications for Admission Other Justification ERICK CARRILLO MD Mar 20, 2021 08:33
--- NOTE | 2021-03-20 08:54 | NUR ---
Patient reports that he has had difficulty swallowing for some time, relating it feels like his throat isn't big enough. 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 Pt has been cutting up some of his pills to make them smaller. Related that he has a hard time eating because of the difficulty in swallowing.
[2021-03-20] MEDS: THIAMINE 100 MG TABLET. PO SCH (09:00)
[2021-03-20] MEDS: ASCORBIC ACID 500 MG TABLET PO SCH (09:00)
[2021-03-20] MEDS: DOXYCYCLINE HYCLATE 100 MG TABLET PO SCH ×2 (09:00→21:03)
[2021-03-20] MEDS: ZINC SULFATE 220 MG CAPSULE. PO SCH (09:00)
[2021-03-20 10:56] VITALS: BP 110/56
--- NOTE | 2021-03-20 11:15 | NUR ---
SW following. 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 COVID-19 negative. GI and Cardiology following. SW will continue to follow.
--- NOTE | 2021-03-20 12:34 | PDOC2 ---
GI CONSULT Date of Service: DATE: 03/20/21 TIME: 11:56 Reason For Consult: pill dysphagia HPI: HPI: 65 y/o male w/ pneumonia, COVID negative. 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 He lives in his truck but says he owns his mom's old house in [place], [place]. He tells me he's had swallowing problems for years - first says 2, later says 20. Daily "choking." Worsening. He has difficulty swallowing pills, especially those large in size. They get stuck in upper throat and he has to cough them out. He has to cut atorvastatin into 8 pieces and swallow 4 pieces at a time. He had no problem swallowing simvastatin but his doctor changed the prescription so the pharmaceutical company could make more money. Tucking his chin makes it easier to swallow. Sometimes taking a bite of bread helps the pills go down. "The only food I really have trouble swallowing is steak." Never has difficultly with liquids. He is edentulous - does have upper dentures that were left in his truck. I asked about odynophagia - he reports "sore throat" for two years. H/o acid reflux on Prilosec (says "double dose" - I believe two 20mg pills QD). He has not taken Prilosec since 03/09/21 when current illness began "because it makes it worse" but is unable to specifically tell me how Prilosec made him feel worse. 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 H/o constipation improved w/ Colace 2 pills daily. Again elaborates on the difficulties of his work schedule and how driving a truck prevents him from having regular bowel habits. Denies diarrhea. No n/v. Apparently had some abdominal pain when he started taking zinc, but his friend in [place] (who is not a doctor but has read a lot of books and doctors learn things from her) looked it up and told him to stop taking zinc and pain resolved. I asked about hematochezia or melena and he told me he had hematochezia ("filled the toilet with blood every time") years ago related to hemorrhoids and constipation but none recently. Nothing tastes good - new symptom with this illness. Assumes weight loss since hasn't eaten much over the past weeks - says he just tried to stay in his truck and not go into rest stops in case he had COVID. No previous EGD. Once more, talks for some time about how his work schedule has prevented him from scheduling an upper endoscopy. Requests EGD prior to discharge. More than one colonoscopy in the past, last >10 years ago in [place], [place] which possibly revealed benign polyps. No GB, liver, pancreas, or PUD history "but I've always wondered if I have an ulcer because of the my throat." Takes ASA 81mg QD and Naproxen PRN. Not vaccinated for COVID - per other notes, says those vaccinated have had their DNA altered. Also mentions h/o "salivary gland swelling." PMH: PMH: CAD w/ stents, HTN, HLD, depression, skin cancer bilateral IHR, umbilical HR, right shoulder ORIF FH: Family History: No pertinent hx Social History: Smoke: Quit ALCOHOL: none Drugs: None ROS: GEN: Denies fevers, chills, sweats HEENT: +sore throat CV: Denies chest pain RESP: +SOA +cough GI: Per HPI : Denies hematuria, dysuria ENDO: ?weight loss NEURO: Denies confusion, dizziness MSK: "I've have pain since I was 19." SKIN: Denies jaundice, pruritus Vitals: Vitals: Vital Signs Date Time Temp Pulse Resp B/P (MAP) Pulse Ox O2 Delivery O2 Flow Rate FiO2 03/20/21 10:56 98.3 67 17 110/56 (74) 93 Nasal Cannula 2.0 98.3 Labs: Labs: Laboratory Tests Test 03/19/21 13:17 03/19/21 14:18 03/19/21 16:51 03/19/21 20:29 Urine Collection Type Unknown Urine Color Yellow Urine Clarity Clear Urine pH 6.0 (<5.0-8.0) Urine Specific [place] 1.015 (1.000-1.030) Urine Protein Negative mg/dL (NEG-TRACE) Urine Glucose (UA) Negative mg/dL (NEG) Urine Ketones (Stick) 40 mg/dL (NEG) Urine Blood Negative (NEG) Urine Nitrite Negative (NEG) Urine Bilirubin Negative (NEG) Urine Urobilinogen Dipstick 1.0 mg/dL (0.2 mg/dL) Urine Leukocyte Esterase Negative (NEG) Urine RBC 0 /HPF (0-2) Urine WBC 0 /HPF (0-4) Urine Squamous Epithelial Cells Few /LPF Urine Bacteria 0 /HPF (0-FEW) Urine Mucus Slight /LPF Urine Opiates Screen Pos (NEG) Urine Methadone Screen Neg (NEG) Urine Barbiturates Neg (NEG) Urine Phencyclidine Screen Neg (NEG) Urine Amphetamine/Methamphetamine Neg (NEG) Urine Benzodiazepines Screen Neg (NEG) Urine Cocaine Screen Neg (NEG) Urine Cannabinoids Screen Neg (NEG) Urine Ethyl Alcohol Neg (NEG) Troponin I Quantitative 0.058 ng/mL (0.000-0.055) Glucose (Fingerstick) 145 mg/dL (70-99) 154 mg/dL (70-99) Test 03/20/21 06:40 03/20/21 07:17 03/20/21 11:49 White Blood Count 4.7 x10^3/uL (4.0-11.0) Red Blood Count 4.42 x10^6/uL (4.30-5.70) Hemoglobin 13.9 g/dL (13.0-17.5) Hematocrit 40.3 % (39.0-53.0) Mean Corpuscular Volume 91 fL (79-100) Mean Corpuscular Hemoglobin 32 pg (25-35) Mean Corpuscular Hemoglobin Concent 35 g/dL (31-37) Red Cell Distribution Width 13.4 % (11.5-14.5) Platelet Count 219 x10^3/uL (140-400) Neutrophils (%) (Auto) 68 % (31-73) Lymphocytes (%) (Auto) 20 % (24-48) Monocytes (%) (Auto) 12 % (0-9) Eosinophils (%) (Auto) 0 % (0-3) Basophils (%) (Auto) 0 % (0-3) Neutrophils # (Auto) 3.2 x10^3/uL (1.8-7.7) Lymphocytes # (Auto) 0.9 x10^3/uL (1.0-4.8) Monocytes # (Auto) 0.6 x10^3/uL (0.0-1.1) Eosinophils # (Auto) 0.0 x10^3/uL (0.0-0.7) Basophils # (Auto) 0.0 x10^3/uL (0.0-0.2) Sodium Level 138 mmol/L (136-145) Potassium Level 4.2 mmol/L (3.5-5.1) Chloride Level 104 mmol/L (98-107) Carbon Dioxide Level 27 mmol/L (21-32) Anion Gap 7 (6-14) Blood Urea Nitrogen 9 mg/dL (8-26) Creatinine 0.9 mg/dL (0.7-1.3) Estimated GFR (Cockcroft-Gault) 84.4 BUN/Creatinine Ratio 10 (6-20) Glucose Level 125 mg/dL (70-99) Calcium Level 8.1 mg/dL (8.5-10.1) Total Bilirubin 0.5 mg/dL (0.2-1.0) Aspartate Amino Transf (AST/SGOT) 48 U/L (15-37) Alanine Aminotransferase (ALT/SGPT) 52 U/L (16-63) Alkaline Phosphatase 69 U/L (46-116) Troponin I Quantitative 0.061 ng/mL (0.000-0.055) Total Protein 5.8 g/dL (6.4-8.2) Albumin 2.7 g/dL (3.4-5.0) Albumin/Globulin Ratio 0.9 (1.0-1.7) Glucose (Fingerstick) 129 mg/dL (70-99) 146 mg/dL (70-99) Allergies: Coded Allergies: No Known Drug Allergies (Unverified , 03/19/21) Medications: Current Medications Medications (Trade) Dose Ordered Sig/Jeanie Route PRN Reason Start Time Stop Time Status Last Admin Dose Admin Piperacillin Sod/ Tazobactam Sod 3.375 gm/Sodium Chloride 50 ml @ 100 mls/hr 1X ONCE IV 03/19/21 14:00 03/19/21 14:29 DC 03/19/21 13:58 Doxycycline Hyclate 100 mg/ Dextrose 100 ml @ 50 mls/hr 1X ONCE IV 03/19/21 14:00 03/19/21 15:59 DC 03/19/21 14:00 Ceftriaxone Sodium (Rocephin) 1 gm 1X ONCE IVP 03/19/21 14:00 03/19/21 14:01 DC 03/19/21 13:55 Acetaminophen (Tylenol) 650 mg PRN Q6HRS PRN PO MILD PAIN / TEMP > 100.3'F 03/19/21 14:00 03/19/21 22:37 Morphine Sulfate (Morphine Sulfate) 2 mg PRN Q2HR PRN IVP PAIN 03/19/21 13:45 03/20/21 13:44 03/19/21 21:51 Enoxaparin Sodium (Lovenox 40mg Syringe) 40 mg Q24H SQ 03/19/21 16:00 03/19/21 17:38 Zinc Sulfate (Orazinc) 220 mg DAILY PO 03/19/21 15:00 03/19/21 17:37 Thiamine Mononitrate (Vitamin B-1) 100 mg DAILY PO 03/19/21 15:00 03/19/21 17:37 Ascorbic Acid (Vitamin C) 500 mg DAILY PO 03/19/21 15:00 03/19/21 17:37 Doxycycline Hyclate (Vibra-Tab) 100 mg BID PO 03/19/21 21:00 03/19/21 21:51 Lorazepam (Ativan) 1 mg PRN QHS PRN PO ANXIETY / AGITATION 03/19/21 22:15 03/19/21 22:37 Imaging: Imaging: CXR 03/19 IMPRESSION: Left lower lobe atelectasis or interstitial infiltrate. PE: GEN: NAD HEENT: edentulous LUNGS: diminished to left, frequent coughing, NC 2L HEART: RRR ABD: NABS, S/ND/NT EXTREMITY: No edema - wearing jeans and socks SKIN: No rashes, no jaundice NEURO/PSYCH: A & O 3, very talkative A/P: A/P: Resp failure/pneumonia Chronic dysphagia/choking - seems mostly pills but also mentions steak, felt in neck - worsening Chronic sore throat Acid reflux - off PPI recently Constipation - controlled w/ Colace CRC screen, ?h/o polyps - last colonoscopy >10 years ago CAD on ASA, mildly elevated troponin Flu and COVID negative -- Significant time spent. Chronic swallowing issues (which he explained in great detail) without previous investigation. Should have an EGD at some point, ideally as outpatient when respiratory status has stabilized. In interim, would resume PPI QD. Could consider esophagram and/or CEMENT PAVER opinion. Treat constipation as needed. Due for screening colonoscopy which can be performed w/ EGD as outpt. Will return to see later w/ Dr. Gil. ZACKERY BAKER Mar 20, 2021 12:34
[2021-03-20] MEDS ORDERED: DOCUSATE SODIUM 100 MG CAPSULE. PO PRN (12:45)
--- NOTE | 2021-03-20 13:13 | PDOC2 ---
OSKAR STERN HOME PLANNING CONSULTANT SALESPERSON 03/20/21 1313: CARDIAC CONSULT DATE OF CONSULT Date of Consult DATE: 03/20/21 TIME: 12:58 REASON FOR CONSULT Reason for Consult: Elevated troponin REFERRING PHYSICIAN Referring Physician: Rony SOURCE Source: Chart review, Patient HISTORY OF PRESENT ILLNESS HISTORY OF PRESENT ILLNESS 65 y/o male w/ pneumonia, COVID negative. He has been complaining of chills, cough and SOA and body aches. 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 He follows with Dr. Jay from [facility]. He takes ASA and does not want to take lipitor and would rather take zocor because of his swallowing issu. He has been cutting his pills in pieces to take take. Denies any chest pain. He has been coughing nonproductive when he takes a deep breath. His food and pills have been getting stuck lately when he swallows. He is unvaccinated for covid-19. He had stress test 09/2020 this yr and reported that this was good. His cardiac stents was placed in 2013. Denies any dizziness or palpitations. PAST MEDICAL HISTORY Cardiovascular: CAD, HTN, Hyperlipidemia Pulmonary: No pertinent hx CENTRAL NERVOUS SYSTEM: Other (No pertinent history) GI: Other (dysphagia) Heme/Onc: No pertinent hx Hepatobiliary: No pertinent hx Psych: No pertinent hx Musculoskeletal: Osteoarthritis Infectious disease: No pertinent hx ENT: No pertinent hx Renal/: No pertinent hx Endocrine: No pertinent hx Dermatology: Other (skin CA) PAST SURGICAL HISTORY Past Surgical History: Arthroscopy (right shoulder), Other (PCI) FAMILY HISTORY Family History: Heart Disease (mother) SOCIAL HISTORY Smoke: Quit ALCOHOL: none Drugs: None Lives: with Family CURRENT MEDICATIONS CURRENT MEDICATIONS Current Medications Medications (Trade) Dose Ordered Sig/Jeanie Route PRN Reason Start Time Stop Time Status Last Admin Dose Admin Piperacillin Sod/ Tazobactam Sod 3.375 gm/Sodium Chloride 50 ml @ 100 mls/hr 1X ONCE IV 03/19/21 14:00 03/19/21 14:29 DC 03/19/21 13:58 Doxycycline Hyclate 100 mg/ Dextrose 100 ml @ 50 mls/hr 1X ONCE IV 03/19/21 14:00 03/19/21 15:59 DC 03/19/21 14:00 Ceftriaxone Sodium (Rocephin) 1 gm 1X ONCE IVP 03/19/21 14:00 03/19/21 14:01 DC 03/19/21 13:55 Acetaminophen (Tylenol) 650 mg PRN Q6HRS PRN PO MILD PAIN / TEMP > 100.3'F 03/19/21 14:00 03/19/21 22:37 Morphine Sulfate (Morphine Sulfate) 2 mg PRN Q2HR PRN IVP PAIN 03/19/21 13:45 03/20/21 13:44 03/19/21 21:51 Enoxaparin Sodium (Lovenox 40mg Syringe) 40 mg Q24H SQ 03/19/21 16:00 03/19/21 17:38 Zinc Sulfate (Orazinc) 220 mg DAILY PO 03/19/21 15:00 03/19/21 17:37 Thiamine Mononitrate (Vitamin B-1) 100 mg DAILY PO 03/19/21 15:00 03/19/21 17:37 Ascorbic Acid (Vitamin C) 500 mg DAILY PO 03/19/21 15:00 03/19/21 17:37 Doxycycline Hyclate (Vibra-Tab) 100 mg BID PO 03/19/21 21:00 03/19/21 21:51 Lorazepam (Ativan) 1 mg PRN QHS PRN PO ANXIETY / AGITATION 03/19/21 22:15 03/19/21 22:37 ALLERGIES ALLERGIES: Coded Allergies: No Known Drug Allergies (Unverified , 03/19/21) ROS Review of System 14 point ROS evaluated with pertinent positives noted per HPI PHYSICAL EXAM General: Alert, Oriented X3, Cooperative, No acute distress HEENT: Atraumatic, Mucous membr. moist/pink Lungs: Normal air movement, Other (diminished bases) Abdomen: Soft, No tenderness Extremities: No cyanosis, No edema Skin: No breakdown, No significant lesion Neuro: Normal speech, Sensation intact Psych/Mental Status: Mental status NL, Mood NL MUSCULOSKELETAL: Osteoarthritic changes both hands VITALS/I&O VITALS/I&O: Vital Signs Date Time Temp Pulse Resp B/P (MAP) Pulse Ox O2 Delivery O2 Flow Rate FiO2 03/20/21 10:56 98.3 67 17 110/56 (74) 93 Nasal Cannula 2.0 98.3 I & O 03/19/21 03/19/21 03/20/21 15:00 23:00 07:00 Intake Total 2290 ml 200 ml Output Total 200 ml 700 ml Balance 2290 ml 0 ml -700 ml LABS Lab: Laboratory Tests Test 03/19/21 13:17 03/19/21 14:18 03/19/21 16:51 03/19/21 20:29 Urine Collection Type Unknown Urine Color Yellow Urine Clarity Clear Urine pH 6.0 (<5.0-8.0) Urine Specific [place] 1.015 (1.000-1.030) Urine Protein Negative mg/dL (NEG-TRACE) Urine Glucose (UA) Negative mg/dL (NEG) Urine Ketones (Stick) 40 mg/dL (NEG) Urine Blood Negative (NEG) Urine Nitrite Negative (NEG) Urine Bilirubin Negative (NEG) Urine Urobilinogen Dipstick 1.0 mg/dL (0.2 mg/dL) Urine Leukocyte Esterase Negative (NEG) Urine RBC 0 /HPF (0-2) Urine WBC 0 /HPF (0-4) Urine Squamous Epithelial Cells Few /LPF Urine Bacteria 0 /HPF (0-FEW) Urine Mucus Slight /LPF Urine Opiates Screen Pos (NEG) Urine Methadone Screen Neg (NEG) Urine Barbiturates Neg (NEG) Urine Phencyclidine Screen Neg (NEG) Urine Amphetamine/Methamphetamine Neg (NEG) Urine Benzodiazepines Screen Neg (NEG) Urine Cocaine Screen Neg (NEG) Urine Cannabinoids Screen Neg (NEG) Urine Ethyl Alcohol Neg (NEG) Troponin I Quantitative 0.058 ng/mL (0.000-0.055) Glucose (Fingerstick) 145 mg/dL (70-99) H 154 mg/dL (70-99) H Test 03/20/21 06:40 03/20/21 07:17 03/20/21 11:49 White Blood Count 4.7 x10^3/uL (4.0-11.0) Red Blood Count 4.42 x10^6/uL (4.30-5.70) Hemoglobin 13.9 g/dL (13.0-17.5) Hematocrit 40.3 % (39.0-53.0) Mean Corpuscular Volume 91 fL (79-100) Mean Corpuscular Hemoglobin 32 pg (25-35) Mean Corpuscular Hemoglobin Concent 35 g/dL (31-37) Red Cell Distribution Width 13.4 % (11.5-14.5) Platelet Count 219 x10^3/uL (140-400) Neutrophils (%) (Auto) 68 % (31-73) Lymphocytes (%) (Auto) 20 % (24-48) L Monocytes (%) (Auto) 12 % (0-9) H Eosinophils (%) (Auto) 0 % (0-3) Basophils (%) (Auto) 0 % (0-3) Neutrophils # (Auto) 3.2 x10^3/uL (1.8-7.7) Lymphocytes # (Auto) 0.9 x10^3/uL (1.0-4.8) L Monocytes # (Auto) 0.6 x10^3/uL (0.0-1.1) Eosinophils # (Auto) 0.0 x10^3/uL (0.0-0.7) Basophils # (Auto) 0.0 x10^3/uL (0.0-0.2) Sodium Level 138 mmol/L (136-145) Potassium Level 4.2 mmol/L (3.5-5.1) Chloride Level 104 mmol/L (98-107) Carbon Dioxide Level 27 mmol/L (21-32) Anion Gap 7 (6-14) Blood Urea Nitrogen 9 mg/dL (8-26) Creatinine 0.9 mg/dL (0.7-1.3) Estimated GFR (Cockcroft-Gault) 84.4 BUN/Creatinine Ratio 10 (6-20) Glucose Level 125 mg/dL (70-99) H Calcium Level 8.1 mg/dL (8.5-10.1) L Total Bilirubin 0.5 mg/dL (0.2-1.0) Aspartate Amino Transferase (AST) 48 U/L (15-37) H Alanine Aminotransferase (ALT) 52 U/L (16-63) Alkaline Phosphatase 69 U/L (46-116) Troponin I Quantitative 0.061 ng/mL (0.000-0.055) Total Protein 5.8 g/dL (6.4-8.2) L Albumin 2.7 g/dL (3.4-5.0) L Albumin/Globulin Ratio 0.9 (1.0-1.7) L Glucose (Fingerstick) 129 mg/dL (70-99) H 146 mg/dL (70-99) H Laboratory Tests 03/20/21 06:40 Laboratory Tests 03/20/21 06:40 ASSESSMENT/PLAN ASSESSMENT/PLAN 1. CAP: covid-19 neg 2. Mild troponin elevation: peaked at 0.06. suspect demand mediated type 2, no acute changes to EKG. No CP 3. CAD: past PCI 4. HTN: controlled 5. HLP: close to goal 6. Chronic dysphagia 7. Asymptomatic SB: base is 60s episodes in mid40s no pauses or heart blocks. Recommendations 1. ASA. Start on zocor as he refused to take lipitor 2. Not on BB possibly from bradycardia episodes. Lowest noted HR in the mid40s. No BP regimen currently. 3. Will try to obtain stress test done in 09/2020. TTE today. Follow up with Dr. Jay his wood sash and frame carpenter 4. Will rule out PE, CTA chest today LE LUX MD 03/21/212123: CARDIAC CONSULT ASSESSMENT/PLAN ASSESSMENT/PLAN Patient seen and examined 03/20/21. Agree with MARKETER's assessment and plan. Slight trop elevation prob demand ischemia - doubt ACS Recent stress test apparently normal - will get records F/u with primary wood sash and frame carpenter Thank you for your consultation OSKAR STERN APRN Mar 20, 2021 13:13 LE LUX MD Mar 21, 2021 21:24
[2021-03-20 13:22] LABS: CHOLESTEROL/HDL RATIO 4.7
[2021-03-20 15:00] VITALS: BP 102/58
[2021-03-20] MEDS ORDERED: IOHEXOL 350 MG/ML 100 ML VIAL. IV ONE (16:30)
[2021-03-20] MEDS ORDERED: CONTRAST GIVEN. MC PRN (16:30)
[2021-03-20] MEDS: cefTRIAXone IV Push 1 GM VIAL. IVP SCH (17:14)
[2021-03-20] MEDS: ASPIRIN ENTERIC COATED 81 MG TABLET.DR. PO SCH (17:15)
[2021-03-20] MEDS: ENOXAPARIN 40 MG/0.4 ML SYRINGE. SQ SCH (17:16)
--- NOTE | 2021-03-20 18:07 | RAD ---
Examination: CT angiography chest with IV contrast HISTORY: History of dyspnea, pulmonary embolism COMPARISON: None available TECHNIQUE: Axial CT angiographic images of chest were performed with IV contrast. Coronal and sagitta l 3-D MIP reformats are performed Exposure: One or more of the following individualized dose reduction techniques were utilized for thi s examination: 1. Automated exposure control 2. Adjustment of the mA and/or kV according to patient size 3. Use of iterative reconstruction technique FINDINGS: The central airways are patent. The heart size grossly appears unremarkable. Coronary artery calcific ations. The caliber of the aorta grossly appears unremarkable. There is no evidence of filling defect identified in pulmonary arterial trunk and right and left main pulmonary arteries and the visualized lobar, segmental branches of the pulmonary arteries. There are multiple scattered groundglass airspace opacities identified in the periphery of the bilateral lungs . The liver, spleen, adrenals grossly appears unremarkable. Mild degenerative changes thoracic spine. IMPRESSION: 1. No evidence of pulmonary embolism. 2. Multiple scattered groundglass airspace opacities identified in the periphery of the bilateral kathie ngs likely infiltrates or covid pneumonia . Follow-up to resolution. Electronically signed by: Geoff Flores MD (03/20/2021 6:05 PM) [id number]
[2021-03-20] MEDS: LACTOBACILLUS RHAMNOSUS GG 1 CAPSULE. PO SCH (21:03)
[2021-03-20] MEDS: SIMVASTATIN 40 MG TABLET. PO SCH (21:03)
[2021-03-20 23:00] VITALS: BP 104/60
[2021-03-21 03:12] VITALS: BP 138/68
[2021-03-21 07:00] VITALS: BP 116/55
[2021-03-21] MEDS: ASPIRIN ENTERIC COATED 81 MG TABLET.DR. PO SCH (08:00)
[2021-03-21] MEDS: LANSOPRAZOLE 30 MG TAB.RAP.DR PO SCH (08:21)
[2021-03-21] MEDS: ZINC SULFATE 220 MG CAPSULE. PO SCH (08:29)
[2021-03-21] MEDS: LACTOBACILLUS RHAMNOSUS GG 1 CAPSULE. PO SCH ×2 (08:30→21:55)
[2021-03-21] MEDS: ASCORBIC ACID 500 MG TABLET PO SCH (08:30)
[2021-03-21] MEDS: THIAMINE 100 MG TABLET. PO SCH (08:30)
[2021-03-21] MEDS: DOXYCYCLINE HYCLATE 100 MG TABLET PO SCH ×2 (08:31→21:52)
[2021-03-21 11:02] VITALS: BP 121/60
--- NOTE | 2021-03-21 12:53 | CARD ---
MR#: [id number] Date of Study: 03/20/2021 Ordering Physician: OSKAR STERN, Referring Physician: Ceci KRAUS: Sami Silva [facility] APPROVED REPORT EXAM: Two-dimensional and M-mode echocardiogram with Doppler and color Doppler. Other Information Quality : AverageHR: 69bpm Rhythm : NSR INDICATION Cardiac Disease: CAD Elevated troponin RISK FACTORS Hypertension Hyperlipidemia Pneumonia, 2D DIMENSIONS Left Atrium(2D)3.5 (1.6-4.0cm)IVSd0.9 (0.7-1.1cm) Aortic Root(2D)4.2 (2.0-3.7cm)LVDd4.0 (3.9-5.9cm) LVOT Diameter2.3 (1.8-2.4cm)PWd0.8 (0.7-1.1cm) LVDs2.5 (2.5-4.0cm)FS (%) 36.4 % SV45.8 mlLVEF(%)66.7 (>50%) Aortic Valve AoV Peak Jj.124.9cm/sAoV VTI22.0cm AO Peak GR.6.2mmHgLVOT Peak Jj.108.8cm/s AO Mean GR.3mmHgAVA (VMAX)3.63cm2 Mitral Valve MV E Nxgxtupn98.2cm/sMV E Peak Gr.3mmHg MV DECEL [id number] A Xfbexkpc55.5cm/s MV E Mean Gr.1mmHgE/A Ratio1.3 Pulmonary Valve PV Peak Pgcjqjyh17.0cm/s Tricuspid Valve TR P. Jeysuchv785uu/sTR Peak Gr.20mmHg Pulmonary Vein S1 Wyzjuufz40.3cm/sD2 Jnyiwtmi14.9cm/s LEFT VENTRICLE The left ventricle is normal size. There is normal left ventricular wall thickness. The left ventricu lar systolic function is normal and the ejection fraction is within normal range. EF 55% There is nor mal LV segmental wall motion. The left ventricular diastolic function and filling is normal for age. No left ventricle thrombus noted on this study. There is no ventricular septal defect visualized. The re is no left ventricular aneurysm. There is no mass noted in the left ventricle. RIGHT VENTRICLE The right ventricle is normal size. There is normal right ventricular wall thickness. The right ventr icular systolic function is normal. ATRIA The left atrium is borderline dilated. The right atrium size is normal. The interatrial septum is int act with no evidence for an atrial septal defect or patent foramen ovale as noted on 2-D or Doppler i maging. AORTIC VALVE The aortic valve is mildly sclerotic. Doppler and Color Flow revealed no significant aortic regurgita tion. There is no significant aortic valvular stenosis. There is no aortic valvular vegetation. MITRAL VALVE The mitral valve is normal in structure and function. There is no evidence of mitral valve prolapse. There is no mitral valve stenosis. Doppler and Color-flow revealed trace mitral regurgitation. TRICUSPID VALVE The tricuspid valve is normal in structure and function. Doppler and Color Flow revealed trace to mil d tricuspid regurgitation. There is no tricuspid valve prolapse or vegetation. There is no tricuspid valve stenosis. PULMONIC VALVE Doppler and Color Flow revealed no pulmonic valvular regurgitation. There is no pulmonic valvular sue nosis. GREAT VESSELS The aortic root is mildly dilated at (4.2cm) Proximal ascending aorta (3.6cm) The IVC is normal in si ze and collapses >50% with inspiration. PERICARDIAL EFFUSION There is no pleural effusion. There is no evidence of significant pericardial effusion. Critical Notification Critical Value: No <Conclusion> The left ventricular systolic function is normal and the ejection fraction is within normal range. EF 55% There is normal LV segmental wall motion. Signed by : Carl Calvert, Electronically Approved : 03/21/2021 12:53:25
[2021-03-21] MEDS: cefTRIAXone IV Push 1 GM VIAL. IVP SCH (13:44)
[2021-03-21 15:06] VITALS: BP 111/62
[2021-03-21] MEDS: ENOXAPARIN 40 MG/0.4 ML SYRINGE. SQ SCH (18:17)
--- NOTE | 2021-03-21 18:59 | PDOC ---
GENERAL General: Patient examined chart reviewed today's hospital day 3 for this patient with se veral days of cough, congestion, and low-grade fever at home. 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 He has his mother's house in [facility] that he will stay at periodically but mostly he is on the road. He has not had his Covid vaccination nor does he wear masks regularly. He has not had any known Covid exposure. His PCR and antigen tests are negative however his CAT scan chest is suggestive of Covid pneumonia. We will proceed with another Covid PCR test here and put him back in a PUI status. We will continue community-acquired pneumonia coverage though there is not an obvious lobar infiltrate. Though he is not on supplemental oxygen currently he says he does not feel ready for discharge we will reevaluate in the morning potentially recheck a chest x-ray if needed. Continue current management otherwise. Time spent today is 30 minutes with greater than 50% in counseling and coordination of care most of which in discussion with patient. Problems: (1) Person under investigation for COVID-19 (2) Hypoxia (3) Fever VITAL SIGNS Vital Signs/I&O: Vital Signs Date Time Temp Pulse Resp B/P (MAP) Pulse Ox O2 Delivery O2 Flow Rate FiO2 03/21/21 15:06 97.7 68 20 111/62 (78) 94 Room Air 97.7 03/21/21 08:00 2.0 I & O 03/20/21 03/20/21 03/21/21 15:00 23:00 07:00 Intake Total 240 ml 0 ml 240 ml Balance 240 ml 0 ml 240 ml In general the patient is coughing throughout the visit tells me how much he is frustrated about the situation otherwise in no acute distress HEENT exam is unremarkable for acute abnormality Chest bilateral equal air entry though diminished throughout no crackles or wheezes are noted Heart S1-S2 normal regular rate and rhythm no murmurs or gallops are noted Abdomen soft nontender nondistended no masses organomegaly noted Extremity exam is unremarkable for acute abnormality ALLERGIES Allergies: Allergies Coded Allergies Type Severity Reaction Last Updated Verified No Known Drug Allergies 03/19/21 No MEDS Medications: Current Medications Medications (Trade) Dose Ordered Sig/Jeanie Start Time Stop Time Status Last Admin Dose Admin Acetaminophen (Tylenol) 650 mg PRN Q4HRS PRN 03/19/21 13:45 03/20/21 13:44 UNV Ascorbic Acid (Vitamin C) 500 mg DAILY 03/19/21 15:00 03/20/21 09:00 Aspirin (Ecotrin) 81 mg [id number] 03/20/21 14:00 03/21/21 08:00 Benzonatate (Tessalon Perle) 100 mg [id number] 03/21/21 21:00 Ceftriaxone Sodium (Rocephin) 1 gm Q24H 03/20/21 14:00 03/21/21 13:44 Dexamethasone Sodium Phosphate (Decadron) 4 mg DAILY 03/22/21 09:00 Docusate Sodium (Colace) 100 mg PRN DAILY PRN 03/20/21 12:45 Doxycycline Hyclate (Vibra-Tab) 100 mg BID 03/19/21 21:00 03/21/21 08:31 Doxycycline Hyclate 100 mg/ Dextrose 100 ml @ 50 mls/hr 1X ONCE 03/19/21 13:45 03/19/21 15:44 UNV Enoxaparin Sodium (Lovenox 40mg Syringe) 40 mg Q24H 03/19/21 16:00 03/21/21 18:17 Info (CONTRAST GIVEN -- Rx MONITORING) 1 each PRN DAILY PRN 03/20/21 16:30 03/22/21 16:29 Iohexol (Omnipaque 350 Mg/ml) 100 ml 1X ONCE 03/20/21 16:30 03/20/21 16:31 DC 03/20/21 17:40 Lactobacillus Rhamnosus (Culturelle) 1 cap BID 03/20/21 21:00 03/21/21 08:30 Lansoprazole (Prevacid) 30 mg DAILYAC 03/21/21 07:30 03/21/21 08:21 Lorazepam (Ativan) 1 mg PRN QHS PRN 03/19/21 22:15 03/19/21 22:37 Morphine Sulfate (Morphine Sulfate) 2 mg PRN Q2HR PRN 03/19/21 13:45 03/20/21 13:44 DC 03/19/21 21:51 Ondansetron HCl (Zofran) 4 mg PRN Q8HRS PRN 03/19/21 13:45 03/20/21 13:44 UNV Piperacillin Sod/ Tazobactam Sod 3.375 gm/Sodium Chloride 50 ml @ 100 mls/hr 1X ONCE 03/19/21 14:00 03/19/21 14:29 DC 03/19/21 13:58 Simvastatin (Zocor) 40 mg QHS 03/20/21 21:00 03/20/21 21:03 Sodium Chloride 2,190 ml @ 2,190 mls/hr Q1H 03/19/21 10:30 03/19/21 20:17 DC 03/19/21 10:54 Thiamine Mononitrate (Vitamin B-1) 100 mg DAILY 03/19/21 15:00 03/21/21 08:30 Zinc Sulfate (Orazinc) 220 mg DAILY 03/19/21 15:00 03/21/21 08:29 Current Medications Medications (Trade) Dose Ordered Sig/Jeanie Route PRN Reason Start Time Stop Time Status Last Admin Dose Admin Lactobacillus Rhamnosus (Culturelle) 1 cap BID PO 03/20/21 21:00 03/21/21 08:30 Lansoprazole (Prevacid) 30 mg DAILYAC PO 03/21/21 07:30 03/21/21 08:21 Simvastatin (Zocor) 40 mg QHS PO 03/20/21 21:00 03/20/21 21:03 LAB Lab: Laboratory Tests Test 03/21/21 07:36 Glucose (Fingerstick) 94 mg/dL (70-99) ASSESSMENT & PLAN A&P Plan as noted above This note was created using [employer] and may have omissions and/or errors due to the nature of real-time voice cooker helper. Justifications for Admission Other Justification Nutrition Consultation Dietary Evaluation: Recommendations by RD: Dietary education by RD, Increase Calorie Intake, Protein supplementation Comments: ensure enlive bid Expected Outcomes/Goals: to meet >75% est nutr needs Malnutrition Findings: Body Fat Depletion (Non Severe: Mild Depletion Weight Status: Appropriate Problem Qualifiers (1) Fever: Fever type: unspecified Qualified Codes: R50.9 - Fever, unspecified HARRY DYER MD Mar 21, 2021 18:58
[2021-03-21 19:00] VITALS: BP 109/70
[2021-03-21] MEDS: BENZONATATE 100 MG CAPSULE. PO SCH (21:50)
[2021-03-21] MEDS: SIMVASTATIN 40 MG TABLET. PO SCH (21:51)
[2021-03-21 23:05] VITALS: BP 117/66
[2021-03-22 03:21] VITALS: BP 96/49
[2021-03-22 07:00] VITALS: BP 101/55
[2021-03-22] MEDS: LANSOPRAZOLE 30 MG TAB.RAP.DR PO SCH (07:30)
[2021-03-22 07:49] LABS: BASO % 0 % (0-3); EOS # 0.1 x10^3/uL (0.0-0.7); EOS % 1 % (0-3); HEMATOCRIT 39.6 % (39.0-53.0); HEMOGLOBIN 13.7 g/dL (13.0-17.5); LYMPH # 1.8 x10^3/uL (1.0-4.8); LYMPH % 32 % (24-48); MEAN CORPUSCULAR HEMOGLOBIN 32 pg (25-35); MEAN CORPUSCULAR HGB CONC 35 g/dL (31-37); MEAN CORPUSCULAR VOLUME 92 fL (79-100); MONO # 0.9 x10^3/uL (0.0-1.1); MONO % 16 % (0-9); NEUT # 2.8 x10^3/uL (1.8-7.7); NEUT % 50 % (31-73); PLATELET COUNT 291 x10^3/uL (140-400); RED CELL DISTRIBUTION WIDTH 13.4 % (11.5-14.5); WHITE BLOOD COUNT 5.6 x10^3/uL (4.0-11.0)
[2021-03-22] MEDS: ASPIRIN ENTERIC COATED 81 MG TABLET.DR. PO SCH (08:00)
[2021-03-22 08:25] LABS: ALBUMIN 2.6 g/dL (3.4-5.0); ALBUMIN/GLOBULIN RATIO 0.7 (1.0-1.7); CALCIUM 8.4 mg/dL (8.5-10.1); CREATININE 1.1 mg/dL (0.7-1.3); TOTAL BILIRUBIN 0.4 mg/dL (0.2-1.0); TOTAL PROTEIN 6.2 g/dL (6.4-8.2)
[2021-03-22] MEDS: ASCORBIC ACID 500 MG TABLET PO SCH (08:59)
[2021-03-22] MEDS: THIAMINE 100 MG TABLET. PO SCH (08:59)
[2021-03-22] MEDS: DOXYCYCLINE HYCLATE 100 MG TABLET PO SCH ×2 (09:00→22:23)
[2021-03-22] MEDS: BENZONATATE 100 MG CAPSULE. PO SCH ×3 (09:00→22:23)
[2021-03-22] MEDS: LACTOBACILLUS RHAMNOSUS GG 1 CAPSULE. PO SCH ×2 (09:00→22:23)
[2021-03-22] MEDS: DEXAMETHASONE SOD PHOS 4 MG/ML VIAL IVP SCH (09:00)
[2021-03-22] MEDS: ZINC SULFATE 220 MG CAPSULE. PO SCH (09:00)
[2021-03-22 11:00] VITALS: BP 116/74
--- NOTE | 2021-03-22 11:35 | PDOC ---
GENERAL General: Patient examined chart reviewed more fatigued and dyspneic overnight. He is very bothered by his significant cough. His repeat PCR has returned positive for COVID-[address] his [address] chest results. He is on and off about 2 L of oxygen to keep his saturation up over 90%. He is on dexamethasone and outside of the window for remdesivir. We will continue current management otherwise. He does not need pulmonary consult unless respiratory status worsens. 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 He will need to do some thinking about where he might be able to continue his recovery. Time spent today is 30 minutes with greater than 50% in counseling and coordination of care most of which in discussion with patient. The patient was seen in full isolation gear including N95 respirator covered with a surgical mask, goggles covering eyewear, and contact isolation robe and hair cover. Problems: (1) Pneumonia due to 2019 novel coronavirus (2) Hypoxia VITAL SIGNS Vital Signs/I&O: Vital Signs Date Time Temp Pulse Resp B/P (MAP) Pulse Ox O2 Delivery O2 Flow Rate FiO2 03/22/21 07:00 98.0 60 16 101/55 (70) 97 Room Air 98.0 03/21/21 08:00 2.0 I & O 03/21/21 03/21/21 03/22/21 15:00 23:00 07:00 Intake Total 500 ml 200 ml Balance 500 ml 200 ml In general patient is sitting up in bed more fatigued today still coughing vigorously more dyspneic in no acute distress otherwise HEENT exam is unremarkable for acute abnormality Chest bilateral equal air entry though diminished throughout inspiratory and expiratory fine crackles noted at the bilateral bases Heart S1-S2 normal regular rate and rhythm no murmurs or gallops are noted Abdomen soft nontender nondistended no masses organomegaly noted Extremity exam is unremarkable for acute abnormality ALLERGIES Allergies: Allergies Coded Allergies Type Severity Reaction Last Updated Verified No Known Drug Allergies 03/19/21 No MEDS Medications: Current Medications Medications (Trade) Dose Ordered Sig/Jeanie Start Time Stop Time Status Last Admin Dose Admin Acetaminophen (Tylenol) 650 mg PRN Q4HRS PRN 03/19/21 13:45 03/20/21 13:44 UNV Ascorbic Acid (Vitamin C) 500 mg DAILY 03/19/21 15:00 03/20/21 09:00 Aspirin (Ecotrin) 81 mg [id number] 03/20/21 14:00 03/22/21 08:00 Benzonatate (Tessalon Perle) 100 mg [id number] 03/21/21 21:00 03/22/21 09:00 Ceftriaxone Sodium (Rocephin) 1 gm Q24H 03/20/21 14:00 03/21/21 13:44 Dexamethasone Sodium Phosphate (Decadron) 4 mg DAILY 03/22/21 09:00 03/22/21 09:00 Docusate Sodium (Colace) 100 mg PRN DAILY PRN 03/20/21 12:45 Doxycycline Hyclate (Vibra-Tab) 100 mg BID 03/19/21 21:00 03/22/21 09:00 Doxycycline Hyclate 100 mg/ Dextrose 100 ml @ 50 mls/hr 1X ONCE 03/19/21 13:45 03/19/21 15:44 UNV Enoxaparin Sodium (Lovenox 40mg Syringe) 40 mg Q24H 03/19/21 16:00 03/21/21 18:17 Info (CONTRAST GIVEN -- Rx MONITORING) 1 each PRN DAILY PRN 03/20/21 16:30 03/22/21 16:29 Iohexol (Omnipaque 350 Mg/ml) 100 ml 1X ONCE 03/20/21 16:30 03/20/21 16:31 DC 03/20/21 17:40 Lactobacillus Rhamnosus (Culturelle) 1 cap BID 03/20/21 21:00 03/22/21 09:00 Lansoprazole (Prevacid) 30 mg DAILYAC 03/21/21 07:30 03/21/21 08:21 Lorazepam (Ativan) 1 mg PRN QHS PRN 03/19/21 22:15 03/19/21 22:37 Morphine Sulfate (Morphine Sulfate) 2 mg PRN Q2HR PRN 03/19/21 13:45 03/20/21 13:44 DC 03/19/21 21:51 Ondansetron HCl (Zofran) 4 mg PRN Q8HRS PRN 03/19/21 13:45 03/20/21 13:44 UNV Piperacillin Sod/ Tazobactam Sod 3.375 gm/Sodium Chloride 50 ml @ 100 mls/hr 1X ONCE 03/19/21 14:00 03/19/21 14:29 DC 03/19/21 13:58 Simvastatin (Zocor) 40 mg QHS 03/20/21 21:00 03/21/21 21:51 Sodium Chloride 2,190 ml @ 2,190 mls/hr Q1H 03/19/21 10:30 03/19/21 20:17 DC 03/19/21 10:54 Thiamine Mononitrate (Vitamin B-1) 100 mg DAILY 03/19/21 15:00 03/21/21 08:30 Zinc Sulfate (Orazinc) 220 mg DAILY 03/19/21 15:00 03/22/21 09:00 Current Medications Medications (Trade) Dose Ordered Sig/Jeanie Route PRN Reason Start Time Stop Time Status Last Admin Dose Admin Dexamethasone Sodium Phosphate (Decadron) 4 mg DAILY IVP 03/22/21 09:00 03/22/21 09:00 Benzonatate (Tessalon Perle) 100 mg [id number] PO 03/21/21 21:00 03/22/21 09:00 LAB Lab: Laboratory Tests Test 03/21/21 20:10 03/22/21 06:40 03/22/21 06:45 SARS-CoV-2 RNA (CHERI) Positive (Negative) A Sodium Level 141 mmol/L (136-145) Potassium Level 4.0 mmol/L (3.5-5.1) Chloride Level 104 mmol/L (98-107) Carbon Dioxide Level 29 mmol/L (21-32) Anion Gap 8 (6-14) Blood Urea Nitrogen 10 mg/dL (8-26) Creatinine 1.1 mg/dL (0.7-1.3) Estimated GFR (Cockcroft-Gault) 67.0 BUN/Creatinine Ratio 9 (6-20) Glucose Level 83 mg/dL (70-99) Calcium Level 8.4 mg/dL (8.5-10.1) L Total Bilirubin 0.4 mg/dL (0.2-1.0) Aspartate Amino Transferase (AST) 50 U/L (15-37) H Alanine Aminotransferase (ALT) 64 U/L (16-63) H Alkaline Phosphatase 65 U/L (46-116) Total Protein 6.2 g/dL (6.4-8.2) L Albumin 2.6 g/dL (3.4-5.0) L Albumin/Globulin Ratio 0.7 (1.0-1.7) L White Blood Count 5.6 x10^3/uL (4.0-11.0) Red Blood Count 4.30 x10^6/uL (4.30-5.70) Hemoglobin 13.7 g/dL (13.0-17.5) Hematocrit 39.6 % (39.0-53.0) Mean Corpuscular Volume 92 fL (79-100) Mean Corpuscular Hemoglobin 32 pg (25-35) Mean Corpuscular Hemoglobin Concent 35 g/dL (31-37) Red Cell Distribution Width 13.4 % (11.5-14.5) Platelet Count 291 x10^3/uL (140-400) Neutrophils (%) (Auto) 50 % (31-73) Lymphocytes (%) (Auto) 32 % (24-48) Monocytes (%) (Auto) 16 % (0-9) H Eosinophils (%) (Auto) 1 % (0-3) Basophils (%) (Auto) 0 % (0-3) Neutrophils # (Auto) 2.8 x10^3/uL (1.8-7.7) Lymphocytes # (Auto) 1.8 x10^3/uL (1.0-4.8) Monocytes # (Auto) 0.9 x10^3/uL (0.0-1.1) Eosinophils # (Auto) 0.1 x10^3/uL (0.0-0.7) Basophils # (Auto) 0.0 x10^3/uL (0.0-0.2) Laboratory Tests 03/22/21 06:45 Laboratory Tests 03/22/21 06:40 ASSESSMENT & PLAN A&P Plan as noted above This note was created using [employer] and may have omissions and/or errors due to the nature of real-time voice manager of planning. Justifications for Admission Other Justification Nutrition Consultation Dietary Evaluation: Recommendations by RD: Dietary education by RD, Increase Calorie Intake, Protein supplementation Comments: ensure enlive bid Expected Outcomes/Goals: to meet >75% est nutr needs Malnutrition Findings: Body Fat Depletion (Non Severe: Mild Depletion Weight Status: Appropriate HARRY DYER MD Mar 22, 2021 11:35
[2021-03-22] MEDS: cefTRIAXone IV Push 1 GM VIAL. IVP SCH (14:00)
[2021-03-22] MEDS: ENOXAPARIN 40 MG/0.4 ML SYRINGE. SQ SCH (14:45)
[2021-03-22 15:00] VITALS: BP 109/69
[2021-03-22 19:00] VITALS: BP 111/65
[2021-03-22] MEDS: SIMVASTATIN 40 MG TABLET. PO SCH (22:22)
[2021-03-22 22:41] VITALS: BP 115/68
[2021-03-23 03:00] VITALS: BP 109/72
[2021-03-23 07:00] VITALS: BP 110/69
[2021-03-23] MEDS: LANSOPRAZOLE 30 MG TAB.RAP.DR PO SCH (07:30)
[2021-03-23] MEDS: ASCORBIC ACID 500 MG TABLET PO SCH (07:36)
[2021-03-23] MEDS: THIAMINE 100 MG TABLET. PO SCH (07:36)
[2021-03-23 07:45] LABS: BASO # 0.1 x10^3/uL (0.0-0.2); BASO % 1 % (0-3); EOS % 0 % (0-3); HEMATOCRIT 39.8 % (39.0-53.0); HEMOGLOBIN 13.9 g/dL (13.0-17.5); LYMPH # 1.3 x10^3/uL (1.0-4.8); LYMPH % 21 % (24-48); MEAN CORPUSCULAR HEMOGLOBIN 32 pg (25-35); MEAN CORPUSCULAR HGB CONC 35 g/dL (31-37); MEAN CORPUSCULAR VOLUME 91 fL (79-100); MONO # 0.7 x10^3/uL (0.0-1.1); MONO % 11 % (0-9); NEUT # 4.4 x10^3/uL (1.8-7.7); NEUT % 68 % (31-73); PLATELET COUNT 341 x10^3/uL (140-400); RED BLOOD COUNT 4.38 x10^6/uL (4.30-5.70); RED CELL DISTRIBUTION WIDTH 13.1 % (11.5-14.5); WHITE BLOOD COUNT 6.4 x10^3/uL (4.0-11.0)
[2021-03-23] MEDS: ASPIRIN ENTERIC COATED 81 MG TABLET.DR. PO SCH (08:00)
[2021-03-23 08:01] LABS: ALBUMIN 2.6 g/dL (3.4-5.0); ALBUMIN/GLOBULIN RATIO 0.7 (1.0-1.7); CALCIUM 8.5 mg/dL (8.5-10.1); GFR 74.8; POTASSIUM 3.8 mmol/L (3.5-5.1); TOTAL BILIRUBIN 0.5 mg/dL (0.2-1.0); TOTAL PROTEIN 6.3 g/dL (6.4-8.2)
[2021-03-23] MEDS: ZINC SULFATE 220 MG CAPSULE. PO SCH (09:00)
[2021-03-23] MEDS: BENZONATATE 100 MG CAPSULE. PO SCH ×2 (09:00→14:00)
[2021-03-23] MEDS: DEXAMETHASONE SOD PHOS 4 MG/ML VIAL IVP SCH (09:00)
[2021-03-23] MEDS: DOXYCYCLINE HYCLATE 100 MG TABLET PO SCH (09:00)
[2021-03-23] MEDS: LACTOBACILLUS RHAMNOSUS GG 1 CAPSULE. PO SCH (09:00)
[2021-03-23 11:00] VITALS: BP 112/72
--- NOTE | 2021-03-23 11:07 | PDOC ---
Date of Service: DATE: 03/23/21 TIME: 11:03 Objective: Objective: D/w nurse - pt asking for scope, she says he has problem swallowing bread and large pills, he refuses Prevacid (which I ordered instead of pantoprazole due to his reports of difficulty swallowing pills). Vital Signs: Vital Signs Date Time Temp Pulse Resp B/P (MAP) Pulse Ox O2 Delivery O2 Flow Rate FiO2 03/23/21 07:00 97.6 65 18 110/69 (83) 93 97.6 03/23/21 03:00 Room Air 03/22/21 08:00 2.0 Labs: Laboratory Tests Test 03/23/21 07:10 White Blood Count 6.4 x10^3/uL Red Blood Count 4.38 x10^6/uL Hemoglobin 13.9 g/dL Hematocrit 39.8 % Mean Corpuscular Volume 91 fL Mean Corpuscular Hemoglobin 32 pg Mean Corpuscular Hemoglobin Concent 35 g/dL Red Cell Distribution Width 13.1 % Platelet Count 341 x10^3/uL Neutrophils (%) (Auto) 68 % Lymphocytes (%) (Auto) 21 % Monocytes (%) (Auto) 11 % Eosinophils (%) (Auto) 0 % Basophils (%) (Auto) 1 % Neutrophils # (Auto) 4.4 x10^3/uL Lymphocytes # (Auto) 1.3 x10^3/uL Monocytes # (Auto) 0.7 x10^3/uL Eosinophils # (Auto) 0.0 x10^3/uL Basophils # (Auto) 0.1 x10^3/uL Sodium Level 139 mmol/L Potassium Level 3.8 mmol/L Chloride Level 105 mmol/L Carbon Dioxide Level 27 mmol/L Anion Gap 7 Blood Urea Nitrogen 10 mg/dL Creatinine 1.0 mg/dL Estimated GFR (Cockcroft-Gault) 74.8 BUN/Creatinine Ratio 10 Glucose Level 115 mg/dL Calcium Level 8.5 mg/dL Total Bilirubin 0.5 mg/dL Aspartate Amino Transf (AST/SGOT) 33 U/L Alanine Aminotransferase (ALT/SGPT) 59 U/L Alkaline Phosphatase 64 U/L Total Protein 6.3 g/dL Albumin 2.6 g/dL Albumin/Globulin Ratio 0.7 BLOOD CULTURE Preliminary NO GROWTH AFTER 4 DAYS Imaging: Chest CTA IMPRESSION: 1. No evidence of pulmonary embolism. 2. Multiple scattered groundglass airspace opacities identified in the periphery of the bilateral lungs likely infiltrates or covid pneumonia . Follow- up to resolution. PE: GEN: in COVID isolation, exam deferred A/P: COVID pneumonia Chronic dysphagia/choking - mostly pills Acid reflux - non-compliant w/ PPI -- Now COVID positive. Avoid troublesome foods (bread per nurse, steak per discussion last week w/ pt). Outpt EGD and colonoscopy. Will change PPI to pantoprazole since he refuses Prevacid. Justicifation of Admission Dx: Justifications for Admission: Justification of Admission Dx: Yes ZACKERY BAKER Mar 23, 2021 11:07
--- NOTE | 2021-03-23 11:09 | PDOC ---
AUSTIN SANCHEZ [employer] WORK[employer] 03/23/21 1109: CARDIO Progress Notes Date and Time Date of Service 03/23/21 Time of Evaluation 1100 Subjective Subjective: No Chest Pain, No Palpitations, Other (breathing improved ) Vitals Vitals Vital Signs Date Time Temp Pulse Resp B/P (MAP) Pulse Ox O2 Delivery O2 Flow Rate FiO2 03/23/21 07:00 97.6 65 18 110/69 (83) 93 97.6 03/23/21 03:00 Room Air 03/22/21 08:00 2.0 Weight Weight [ ] Input and Output Intake and Output Intake and Output 03/23/21 07:00 Intake Total 1040 ml Balance 1040 ml Intake Oral 1040 ml # Voids 1 Laboratory Labs Laboratory Tests Test 03/23/21 07:10 White Blood Count 6.4 x10^3/uL (4.0-11.0) Red Blood Count 4.38 x10^6/uL (4.30-5.70) Hemoglobin 13.9 g/dL (13.0-17.5) Hematocrit 39.8 % (39.0-53.0) Mean Corpuscular Volume 91 fL (79-100) Mean Corpuscular Hemoglobin 32 pg (25-35) Mean Corpuscular Hemoglobin Concent 35 g/dL (31-37) Red Cell Distribution Width 13.1 % (11.5-14.5) Platelet Count 341 x10^3/uL (140-400) Neutrophils (%) (Auto) 68 % (31-73) Lymphocytes (%) (Auto) 21 % (24-48) Monocytes (%) (Auto) 11 % (0-9) Eosinophils (%) (Auto) 0 % (0-3) Basophils (%) (Auto) 1 % (0-3) Neutrophils # (Auto) 4.4 x10^3/uL (1.8-7.7) Lymphocytes # (Auto) 1.3 x10^3/uL (1.0-4.8) Monocytes # (Auto) 0.7 x10^3/uL (0.0-1.1) Eosinophils # (Auto) 0.0 x10^3/uL (0.0-0.7) Basophils # (Auto) 0.1 x10^3/uL (0.0-0.2) Sodium Level 139 mmol/L (136-145) Potassium Level 3.8 mmol/L (3.5-5.1) Chloride Level 105 mmol/L (98-107) Carbon Dioxide Level 27 mmol/L (21-32) Anion Gap 7 (6-14) Blood Urea Nitrogen 10 mg/dL (8-26) Creatinine 1.0 mg/dL (0.7-1.3) Estimated GFR (Cockcroft-Gault) 74.8 BUN/Creatinine Ratio 10 (6-20) Glucose Level 115 mg/dL (70-99) Calcium Level 8.5 mg/dL (8.5-10.1) Total Bilirubin 0.5 mg/dL (0.2-1.0) Aspartate Amino Transf (AST/SGOT) 33 U/L (15-37) Alanine Aminotransferase (ALT/SGPT) 59 U/L (16-63) Alkaline Phosphatase 64 U/L (46-116) Total Protein 6.3 g/dL (6.4-8.2) Albumin 2.6 g/dL (3.4-5.0) Albumin/Globulin Ratio 0.7 (1.0-1.7) Microbiology Micro Microbiology 03/19/21 Blood Culture - Preliminary, Resulted NO GROWTH AFTER 3 DAYS Physical Exam HEENT: Neck Supple W Full Motion Chest: Symmetric LUNGS: Other (RA) Heart: RRR Abdomen: Soft N/T Extremities: No Edema Neurology: alert, oriented, follow commands Assessment Assessment 1. Acute respiratory failure secondary to COVID PNA 2. Mild troponin elevation: peaked at 0.06. suspect demand mediated type 2, no acute changes to EKG. CP free. Echo with preserved LV systolic function 3. CAD: past PCI. Follows with Dr. Jay at [facility] 4. HTN: controlled 5. HLP: close to goal 6. Chronic dysphagia 7. Asymptomatic SB: base is 60s episodes in mid40s no pauses or heart blocks. Recommendations ASA, statin therapy No BB with mild bradycardia. Ongoing lung optimization, treatment of COVID Follow up with primary secondary school registrar upon discharge. Records from [facility] Stress echo 10/07/20 Impression: No stress echocardiographic evidence of myocardial ischemia. Justicifation of Admission Dx: Justifications for Admission: Justification of Admission Dx: Yes Comments: Acute respiratory failure COVID PNA Mild troponin elevation LE LUX MD 03/24/21 0841: CARDIO Progress Notes Assessment Assessment Patient seen and examined 03/23/2021. Agree with WOMEN[employer] COACH's assessment and plan. Slight troponin elevation probably demand ischemia. Recent stress echo did not show any significant ischemia. Continue current treatment for Covid pneumonia and follow-up with primary secondary school registrar. AUSTIN SANCHEZ APRN Mar 23, 2021 11:09 LE LUX MD Mar 24, 2021 08:41
[2021-03-23] MEDS ORDERED: PANTOPRAZOLE 40 MG TABLET.DR. PO SCH (11:15)
--- NOTE | 2021-03-23 11:39 | NUR ---
SW following. 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 Second COVID test came back positive. Cardiology and GI following. SW will continue to follow.
--- NOTE | 2021-03-23 13:27 | PDOC ---
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 Told EMS he has everything with myalgias, subjective fevers, cough, shortness of breath especially on exertion, chills, headache, loss of appetite, loss of taste, symptoms began 03/09/2021. Denies chest pain. Patient tells me he did not get the Covid vaccine and tells me he thinks that everyone who has had it has had their DNA altered. His cough is minimally productive but very annoying. Labs with rapid influenza and rapid COVID-19 antigen negative, WBC 12.4, Hb 15.4 platelets 187, NA 136, K4, BUN 12, CR 1.2, glucose 99, AST 58, ALT 5 alk phos 77, NT proBNP 146, albumin 3, troponin 0.053 lactate 1.7, urine drug screen positive for opiates, urinalysis bland otherwise. EKG sinus rhythm rate of 86 bpm normal axis and intervals QTc 439. Chest radiograph with left basilar infiltrate. Notably hypoxic 87% on room air improved with 2 L nasal cannula oxygen. Admitted for further care. Worse pill dysphagia this morning. Still hypoxic requiring 2 L nasal cannula to maintain saturations 91%. Still with a pretty significant cough. COVID-19 returned negative. Afebrile. Some chest pain on cough. Troponin minimally elevated 0.061. Will get repeat troponin Vitals/I&O Vitals/I&O: Vital Signs Date Time Temp Pulse Resp B/P (MAP) Pulse Ox O2 Delivery O2 Flow Rate FiO2 03/23/21 11:00 97.7 71 18 112/72 (85) 95 97.7 03/23/21 03:00 Room Air 03/22/21 08:00 2.0 I & O 03/22/21 03/22/2103/23/21 15:00 23:00 07:00 Intake Total 240 ml 800 ml Balance 240 ml 800 ml Physical Exam General: Alert, Oriented X3, Cooperative, No acute distress Abdomen: Soft, No tenderness Extremities: No cyanosis, No edema Skin: No breakdown, No significant lesion Labs Labs: Laboratory Tests Test 03/23/21 07:10 White Blood Count 6.4 x10^3/uL (4.0-11.0) Red Blood Count 4.38 x10^6/uL (4.30-5.70) Hemoglobin 13.9 g/dL (13.0-17.5) Hematocrit 39.8 % (39.0-53.0) Mean Corpuscular Volume 91 fL (79-100) Mean Corpuscular Hemoglobin 32 pg (25-35) Mean Corpuscular Hemoglobin Concent 35 g/dL (31-37) Red Cell Distribution Width 13.1 % (11.5-14.5) Platelet Count 341 x10^3/uL (140-400) Neutrophils (%) (Auto) 68 % (31-73) Lymphocytes (%) (Auto) 21 % (24-48) Monocytes (%) (Auto) 11 % (0-9) Eosinophils (%) (Auto) 0 % (0-3) Basophils (%) (Auto) 1 % (0-3) Neutrophils # (Auto) 4.4 x10^3/uL (1.8-7.7) Lymphocytes # (Auto) 1.3 x10^3/uL (1.0-4.8) Monocytes # (Auto) 0.7 x10^3/uL (0.0-1.1) Eosinophils # (Auto) 0.0 x10^3/uL (0.0-0.7) Basophils # (Auto) 0.1 x10^3/uL (0.0-0.2) Sodium Level 139 mmol/L (136-145) Potassium Level 3.8 mmol/L (3.5-5.1) Chloride Level 105 mmol/L (98-107) Carbon Dioxide Level 27 mmol/L (21-32) Anion Gap 7 (6-14) Blood Urea Nitrogen 10 mg/dL (8-26) Creatinine 1.0 mg/dL (0.7-1.3) Estimated GFR (Cockcroft-Gault) 74.8 BUN/Creatinine Ratio 10 (6-20) Glucose Level 115 mg/dL (70-99) Calcium Level 8.5 mg/dL (8.5-10.1) Total Bilirubin 0.5 mg/dL (0.2-1.0) Aspartate Amino Transf (AST/SGOT) 33 U/L (15-37) Alanine Aminotransferase (ALT/SGPT) 59 U/L (16-63) Alkaline Phosphatase 64 U/L (46-116) Total Protein 6.3 g/dL (6.4-8.2) Albumin 2.6 g/dL (3.4-5.0) Albumin/Globulin Ratio 0.7 (1.0-1.7) Assessment and Plan Assessmemt and Plan Problems Medical Problems: (1) Community acquired pneumonia Status: Acute (2) Fever Status: Acute (3) Headache Status: Acute (4) Hypoxia Status: Acute (5) Person under investigation for COVID-19 Status: Acute (6) Shortness of breath Status: Acute Acute hypoxic respiratory failure - likely due to community acquired pneumonia, though COVID 19 is a strong possibility as well. Will wean O2 as tolerated Left lower lobe pneumonia - Rocephin and azithromycin. Given hypoxia will need admission to the hospital. F/u COVID 19 results CAD - s/p RCA stenting, cont meds. Follows with Dr. Jay HLD - cont statin, does not want to have lipitor HTN - cont BB Elevated troponin - likely demand ischemia, will trend. No EKG or telemetry changes. If elevated > 0.5 will initiate heparin and consult cardiology Plan is go ahead and discharge this afternoon Comment Review of Relevant I have reviewed the following items jed (where applicable) has been applied. Medications: Current Medications Medications (Trade) Dose Ordered Sig/Jeanie Route PRN Reason Start Time Stop Time Status Last Admin Dose Admin Pantoprazole Sodium (Protonix) 40 mg DAILYAC PO 03/23/21 11:15 03/23/21 11:53 Justifications for Admission Other Justification GEETA NOLASCO III DO Mar 23, 2021 13:27
[2021-03-23] MEDS ORDERED: DOXY100T PO (13:30)
[2021-03-23] MEDS ORDERED: SIMV40TA18 PO (13:30)
[2021-03-23] MEDS ORDERED: METH4TAB2 PO (13:30)
[2021-03-23] MEDS: cefTRIAXone IV Push 1 GM VIAL. IVP SCH (14:00)
--- NOTE | 2021-03-23 14:28 | DS ---
DATE OF DISCHARGE: 03/23/2021 ADMISSION DIAGNOSIS: Pneumonia. DISCHARGE DIAGNOSIS: Resolving pneumonia. CONSULTS: GI. PROCEDURES: None. HOSPITAL COURSE: The patient is a pleasant, middle-aged male who presented with pneumonia. He states he was checked 2-3 times for COVID, at the first two times were negative but third time was positive. The patient was treated with COVID protocol. We did consult GI because he is having some dysphagia. Today, I saw and examined him. He is at his baseline. His symptoms have resolved. He wants to go home. I spoke with GI nurse practitioner. They do not want to scope him at this time but maybe in a couple of weeks. DISPOSITION: Home. ACTIVITY: As tolerated. DIET: Low sodium. DISCHARGE MEDICATIONS: Please see the MRAD. Medrol Dosepak, doxycycline 100 p.o. b.i.d. and simvastatin 40 a day. Total time 34 minutes. [facility]: Jv TID: [id number]
[2021-03-23 15:00] VITALS: BP 100/65
[2021-03-23] MEDS: ENOXAPARIN 40 MG/0.4 ML SYRINGE. SQ SCH (15:57)
--- NOTE | 2021-03-23 19:42 | NUR ---
Discharge Note: VALENTE VÁSQUEZ [facility] Discharge instructions and discharge home medications reviewed with Patient and a copy given, done by day nurse, Radha Zabala RN. All questions have been answered and understanding verbalized per day nurse. The following instructions and handouts were given: discharge instructions with medication list. Discontinued lines and drains: by day nurse BACILIO Garcia, skin intact. Patient discharged to home with self care via [facility] cab services with all personal belongings.
== END 2021-03-23 19:46 | disposition home or self-care (01) | DRG 177 ==
LOC: ER 09:50 → 5 SOUTH 13:46
PROVIDERS: ADMIT Internal Medicine; ATTEND Internal Medicine
DX: U07.1 COVID-19 (principal); J96.01 Acute respiratory failure with hypoxia; J12.82 Pneumonia due to coronavirus disease 2019; I24.8 Other forms of acute ischemic heart disease; J98.11 Atelectasis; C44.90 Unspecified malignant neoplasm of skin, unspecified; E78.5 Hyperlipidemia, unspecified; F32.9 Major depressive disorder, single episode, unspecified; I10 Essential (primary) hypertension; I25.10 Atherosclerotic heart disease of native coronary artery without angina pectoris; K21.9 Gastro-esophageal reflux disease without esophagitis; R13.10 Dysphagia, unspecified; Z79.82 Long term (current) use of aspirin; Z82.49 Family history of ischemic heart disease and other diseases of the circulatory system; Z91.19 Patient's noncompliance with other medical treatment and regimen; Z95.5 Presence of coronary angioplasty implant and graft; M19.90 Unspecified osteoarthritis, unspecified site; Z79.899 Other long term (current) drug therapy
CPT/HCPCS: 36415; 71045; 71275; 80053; 80061; 80307; 81001; 82962; 83605; 83735; 83880; 84145; 84443; 84484; 85025; 85379; 87040; 87426; 87804; 93005; 93306; 96365; 96375; J0696; J1100; J1650; J2270; J2543; J3490; J7030; J7060; Q9967; U0003; U0005; 99285-25; G0378